=== PATIENT | female | born 1985 | race Caucasian/White ===

== ENCOUNTER → 2017-06-10 15:20 | Outpatient (CLI) | payer OTHER, SELFPAY ==
[2017-06-10 18:33] LABS: Hematocrit 35.7 % (37-47); Hemoglobin 11.9 g/dl (12.0-15.0); Mean Corp Hgb Conc 33.3 g/gl (32-36); Mean Corpuscular Hgb 31.1 pg (27.0-32.0); Mean Corpuscular Volume 93.2 fL (81-99); Mean Platelet Vol. 9.6 fl (6.2-12.0); Platelet Count 288 K/mm3 (150-450); RBC Distribution Width SD 44.7 fl (35.1-43.9); Red Blood Count 3.83 M/mm3 (4.2-5.4); White Blood Count 11.1 K/mm3 (4.4-11.0)
[2017-06-10 18:35] LABS: Scan Indicated on CBC? Y/N NO
[2017-06-10 18:54] LABS: Glucose Challenge Gest 1H 50g 107 mg/dL (70-140)
== END ==
PROVIDERS: Visit Provider Obstetrics & Gynecology
DX: Z34.82 Encounter for supervision of other normal pregnancy, second trimester (principal)
CPT/HCPCS: 36415; 82950; 85027

== ENCOUNTER → 2017-08-09 14:03 | Outpatient (CLI) | payer OTHER, SELFPAY ==
[2017-08-09 17:04] LABS: Group B Strep DNA By PCR POSITIVE (Negative); Probe Check PASS
== END ==
PROVIDERS: Visit Provider Obstetrics & Gynecology
DX: Z36.85 Encounter for antenatal screening for Streptococcus B (principal)
CPT/HCPCS: 87653

== ENCOUNTER 2017-08-19 07:30 | Outpatient (CLI) | payer OTHER, SELFPAY ==
[2017-08-19] MEDS: Lactated Ringers 1,000 ML 125 ML IV (07:45)
[2017-08-19 08:00] VITALS: BMI 32.7
[2017-08-19] MEDS: Terbutaline 1 MG/ML Vial 0.25 MG SC (08:15)
--- NOTE | 2017-08-19 08:26 | PCM.OP.BLANK ---
Operative Report Date of Procedure: 08/19/17 EXTERNAL CEPHALIC VERSION Patient counselled re R,B,alternatives of ECV. 37 + wk EGA and ALANNA 16 cm on Saturday, posterior fundal placenta in RUQ. Vtx in RUQ , breech presentation. O positive blood type NST reactive. Terbutaline 0.25 mg SC given in L upper arm. External cephalic version attempted with ultrasound guidance, Dr. Luz Bae and myself. Attempted three forward rolls and 2 back rolls. persistent breech presentation with VTX in maternal RUQ. Pt tolerated well. Repeat NST prior to dischg. Will arrange for primary C/S for breech presentation.
--- NOTE | 2017-08-19 12:39 | OB.TRI.NOTE ---
History of Present Illness Was patient seen by the physician?: Yes Reason For Visit: VERSION Date of Service: 08/19/17 Final JOSHUA: 09/06/17 Gestational age: 37 Weeks and 3 Days History of Present Illness: 32 yo female at 37 + wk with breech presentation. For external cephalic version. NST prior to and after ECV attempt. Denies UCs. No ROM. +FM. Allergies amoxicillin Allergy (Verified 08/19/17 08:20) Other erythromycin base Allergy (Verified 08/19/17 08:20) Other Penicillins Allergy (Verified 08/19/17 08:20) Hives Physical Exam General: Alert, Oriented x3, Cooperative, No apparent distress HEENT: Atraumatic Abdomen: Soft, Gravid - Breech presentation with Vtx in maternal RUQ. Posterior fundal placenta ALANNA WNL NST - FHR Rate Baby A Baseline: 130-140 avg variability. Accels to 150-160s Variability:: Moderate Accelerations:: 15 x 15 Decelerations:: None NST Reactive:: Yes, Appropriate for gestational age FHR Category:: Category I Uterine Activity:: no regular UCs noted. Impression/Plan 37 3/7 wk BREECH presentation. persistent breech after trial of ext cephalic version NST reactive post ECV Patient and fetus tolerated procedure well. Plan primary C/S at approx 39 wk EGA.
== END 2017-08-19 09:00 | disposition home or self-care (01) ==
LOC: WPOUT 07:39 → WP 07:40
PROVIDERS: Visit Provider Obstetrics & Gynecology
DX: O32.1XX0 Maternal care for breech presentation, not applicable or unspecified (principal); Z3A.37 37 weeks gestation of pregnancy
CPT/HCPCS: 96360; 59050; 59412; 76815; 99218; J7120; G0378

== ENCOUNTER 2017-09-04 05:20 | Inpatient (IN) | payer OTHER, SELFPAY ==
[2017-09-03 09:10] VITALS: BMI 32.8
[2017-09-03 10:10] LABS: Absolute Lymphocyte Count 1.35 X10^3/ul (0.83-4.51); Absolute Neutrophil Count 7.2 X10^3/uL (2.0-7.7); Basophil# 0.03 X10^3/uL; Basophil% 0.3 % (0-1); Eosinophil# 0.19 X10^3/uL; Hematocrit 36.5 % (37-47); Hemoglobin 12.4 g/dl (12.0-15.0); Lymphocyte # 1.35 X10^3/ul (4.0); Lymphocyte % 14.1 % (19-41); Mean Corpuscular Hgb 30.8 pg (27.0-32.0); Mean Corpuscular Volume 90.6 fL (81-99); Mean Platelet Vol. 10.8 fl (6.2-12.0); Monocyte# 0.78 X10^3/uL; Monocyte% 8.2 % (0-10); Neutrophil # 7.21 X10^3/uL (2.7-7.7); Neutrophil % 75.3 % (47-70); POSITIVE COUNT NO; POSITIVE DIFFERENTIAL NO; POSITIVE MORPHOLOGY NO; Platelet Count 215 K/mm3 (150-450); RBC Distribution Width CV 12.8 % (11.6-14.6); RBC Distribution Width SD 41.8 fl (35.1-43.9); Red Blood Count 4.03 M/mm3 (4.2-5.4); White Blood Count 9.6 K/mm3 (4.4-11.0)
[2017-09-03 10:16] LABS: International Normalized Ratio 0.9; Prothrombin Time (Protime)PT. 12.2 SECONDS (11.7-14.9)
[2017-09-03 10:17] LABS: Partial Thromboplast Time 25.2 Seconds (24.1-36.2)
[2017-09-04] VITALS (21 sets, daily range): BP systolic 97–168; BP diastolic 52–96; PULSE 66–99; RESP 16–20; TEMP 36.2–36.7; O2SAT 95–99; BMI 32.6
[2017-09-04] MEDS: Lactated Ringers 1,000 ML 999 ML IV (06:00)
[2017-09-04] MEDS: Lactated Ringers 1,000 ML 150 ML IV (06:58)
[2017-09-04] MEDS: Sodium Citrate/Citric Acid 30 ML UDC PO (07:00)
--- NOTE | 2017-09-04 07:05 | PCM.DCCSEC ---
Discharge Diet: No Restrictions Discharge Activity: May not drive while taking narcotic pain medications., May Shower, May Take a Tub Bath Return to work on:: 10/28/17 May resume sexual activity in: 4-6 weeks Lifting Restrictions: 20 pounds Additional Activity Instructions:: Nothing in the vagina for 4-6 weeks. You may return to work/school in 6 weeks. Change Dressing in (Days):: 4 Remove Dressing in (days):: 4 Cleanse incision/area with: Soap & Water, Keep Dressing Clean & Dry Additional Instructions: If you experience any of the following, contact your healthcare provider. Bleeding that soaks a pad every hour for 2 hours Fever 100.4 or higher Unrelieved incision or abdominal pain Swelling, redness, discharge or bleeding from your incision Problems urinating (including inability to urinate or burning while urinating). Visual changes Severe headache Flu-like symptoms Pain or redness in one of both of your breasts Pain, warmth, tenderness or swelling in your legs, especially the calf area Frequent nausea and vomiting Symptoms of depression or anxiety If you experience any of the following, call 911 or go to the nearest Emergency Room. Chest pain Problems breathing Seizure activity Partial or complete paralysis of a body part, slurred speech, weakness or drooping of the face, or a sudden inability to walk or hold your balance Allergies/Adverse Reactions: Allergies amoxicillin Allergy (Verified 09/03/17 09:08) Other erythromycin base Allergy (Verified 09/03/17 09:08) Other Penicillins Allergy (Verified 09/03/17 09:08) Hives Medications to take at Discharge Vit No.130/Iron/FA [ Tablet] 08/19/17 Docusate Sodium [Colace] 100 mg PO BID PRN PRN #30 cap 09/04/17 Naproxen [Naprosyn] 250 - 500 mg PO TID PRN #30 tab 09/04/17 Oxycodone [Oxyir] 5 - 10 mg PO Q6H PRN PRN 7 Days #28 tablet 09/04/17 The following prescriptions were given: Oxycodone [Oxyir] 5 - 10 mg PO Q6H PRN PRN 7 Days #28 tablet PRN Reason: Mod-Severe Pain (-11/20) Docusate Sodium [Colace] 100 mg PO BID PRN PRN #30 cap PRN Reason: Constipation Naproxen [Naprosyn] 250 - 500 mg PO TID PRN #30 tab PRN Reason: Mild-Mod Pain (-06/20) Follow-Up: Call to make an appointment with your doctor for an incision check in 1-2 weeks. You will also need a 6 week post- follow up appointment. Test results from this visit will be discussed in further detail at your follow-up appointment, if applicable. Please Follow Up With: Kat Martinez MD - [phone] When: Call to make an appointment for an incision check in 2 weeks. Primary Care Physician: Care Physician,No Primary [Primary Care Provider] - Proposed Discharge Date: 09/06/17
--- NOTE | 2017-09-04 07:09 | DCINST_ITS ---
Discharge Diet: No Restrictions Discharge Activity: May not drive while taking narcotic pain medications., May Shower, May Take a Tub Bath Return to work on:: 10/28/17 May resume sexual activity in: 4-6 weeks Lifting Restrictions: 20 pounds Additional Activity Instructions:: Nothing in the vagina for 4-6 weeks. You may return to work/school in 6 weeks. Change Dressing in (Days):: 4 Remove Dressing in (days):: 4 Cleanse incision/area with: Soap & Water, Keep Dressing Clean & Dry Additional Instructions: If you experience any of the following, contact your healthcare provider. * Bleeding that soaks a pad every hour for 2 hours * Fever 100.4 or higher * Unrelieved incision or abdominal pain * Swelling, redness, discharge or bleeding from your incision * Problems urinating (including inability to urinate or burning while urinating) . * Visual changes * Severe headache * Flu-like symptoms * Pain or redness in one of both of your breasts * Pain, warmth, tenderness or swelling in your legs, especially the calf area * Frequent nausea and vomiting * Symptoms of depression or anxiety If you experience any of the following, call 911 or go to the nearest Emergency Room. * Chest pain * Problems breathing * Seizure activity * Partial or complete paralysis of a body part, slurred speech, weakness or drooping of the face, or a sudden inability to walk or hold your balance Allergies/Adverse Reactions: Allergies amoxicillin Allergy (Verified 09/03/17 09:08) Other erythromycin base Allergy (Verified 09/03/17 09:08) Other Penicillins Allergy (Verified 09/03/17 09:08) Hives Medications to take at Discharge Vit No.130/Iron/FA [ Tablet] 08/19/17 Docusate Sodium [Colace] 100 mg PO BID PRN PRN #30 cap 09/04/17 Naproxen [Naprosyn] 250 - 500 mg PO TID PRN #30 tab 09/04/17 Oxycodone [Oxyir] 5 - 10 mg PO Q6H PRN PRN 7 Days #28 tablet 09/04/17 The following prescriptions were given: Oxycodone [Oxyir] 5 - 10 mg PO Q6H PRN PRN 7 Days #28 tablet PRN Reason: Mod-Severe Pain (-11/20) Docusate Sodium [Colace] 100 mg PO BID PRN PRN #30 cap PRN Reason: Constipation Naproxen [Naprosyn] 250 - 500 mg PO TID PRN #30 tab PRN Reason: Mild-Mod Pain (-06/20) Follow-Up: Call to make an appointment with your doctor for an incision check in 1-2 weeks. You will also need a 6 week post- follow up appointment. Test results from this visit will be discussed in further detail at your follow- up appointment, if applicable. Please Follow Up With: Kat Martinez MD - [phone] When: Call to make an appointment for an incision check in 2 weeks. Primary Care Physician: Care Physician,No Primary [Primary Care Provider] - Proposed Discharge Date: 09/06/17
[2017-09-04] MEDS: Oxytocin 30 units/NS 500 ml 30 UNITS/500 ML IV.SOLN 167 UNITS IV (07:38)
--- NOTE | 2017-09-04 08:21 | PCM.OP.BLANK ---
Operative Report Date of Procedure: 09/04/17 - 39 5/7 wk breech PROCEDURE: Primary C section. Preoperative diagnosis: 39 5/7 wk EGA Breech presentation Planned C section Postop diagnosis: 39 5/7 wk EGA Breech presentation Planned C section Anesthesia: Spinal, Stuart Motley CRNA Surgeon: Kat Martinez MD President Ceo & Founder: ANGELO Vega EBL 600 cc Complications: none Drains: Tom draining clear yellow / manpreet concentrated appearing urine Fluids: replacement LR Findings: At amniotomy, clear fluid was noted. Paulino viable female in breech presentation. Apgars 8/9, Baby weight: 8# 9 oz. There was a normal appearing uterus, fallopian tubes and ovaries bilaterally. PATH: None sent. Narrative account: After the risks, benefits and alternatives of the procedure were reviewed with the patient, informed consent was obtained. The patient was taken to the Operating room with an IV running, and placed in a seated position on the operating table for placement of the spinal. Once the spinal had been administered, she was placed in dorsal supine position and briefly frog-legged for Tom catheter placement, and then repositioned to dorsal supine position with leftward displacement of the uterus, and prepped and draped in the usual sterile fashion. Once the spinal was deemed adequate, a Pfannenstiel skin incision was created using the knife and the incision was carried down to the rectus fascia using the knife. The fascia was nicked in the midline. The fascial incision was extended bilaterally using curved Monk scissors. The superior aspect of the fascial incision was grasped with Afshin clamps and tented up and the underlying rectus abdominal muscles were dissected free. In a similar manner, the inferior aspect of the facial incision was grasped with Afshin clamps tented up and the underlying rectus abdominal muscles were dissected free. The rectus abdominis muscles were in the midline and the peritoneum was identified and entered by blunt dissection high in the incision. The peritoneum was stretched laterally and a bladder blade was inserted. A bladder flap was created along the lower uterine segment with Metzenbaum scissors . The uterine incision was then created using Metzenbaum scissors. The operators fingertips were used to extend the uterine incision by blunt dissection in a caudad- cephalad orientation . Clear fluid was noted at amniotomy. The breech was then delivered atraumatically through the incision. up to the level of the arms which were reduced. The Vtx was delivered through the incision by keeping the neck flexed. The OP and nares were bulb suctioned on the abdomen. The cord clamped x two and cut. And the was handed off to the nurse awaiting delivery after briefly showing her to her parents. The baby had a spontaneous, vigorous cry. The placenta was then delivered. The uterus was exteriorized and cleared of clots and debris . The uterine incision was repaired with 1 Vicryl in a running locked fashion. A second imbricating layer was then placed, using 1 Monocryl in running nonlocked fashion. An additional figure of eight stitch of 1 Vicryl was placed at the right uterine angle for hemostasis. The uterus was returned to the abdominal cavity. The gutters were cleared of clots and debris and the incision at the uterus was inspected. Excellent hemostasis was noted. The peritoneal edges rectus abdominis muscles were reapproximated in the midline with vertical mattress stitches of 1 Vicryl. Bovie cautery was used as needed along peritoneal edges for hemostasis. Excellent hemostasis was noted at the subfascial space. The fascia was closed with Stratofix. The Subcutaneous fatty tissue was Bovie cauterized as needed for hemostasis. This layer was then reapproximated with a single layer of running 3-0 Vicryl to eliminate space. The skin edges were closed in a Subcuticular stitch of 4-0 Monocryl. The incision was cleansed. Cavilon, Steristrips, and Mepilex dressing were applied to the skin. The patient was then transferred to the recovery room bed in stable condition after tolerating the procedure well. Sponge, lap, needle and instrument counts correct times two. Medications given preop and intraoperatively included: Gentamicin and clindamycin given prior to incision. The patient also received Pitocin given IV after cord clamp, and Toradol 30 mg IV times one. For a complete listing of medications given preop and intraoperatively, please see the anesthesia record.
[2017-09-04] MEDS: 0.9% Saline Lock 10 ML Syringe IV (12:55)
[2017-09-04] MEDS: Ketorolac 30 MG/ML Syringe IV ×2 (12:55→17:32)
[2017-09-04] MEDS: Lactated Ringers 1,000 ML 100 ML IV ×2 (13:31→22:31)
--- NOTE | 2017-09-04 16:19 | CHAPLAIN ---
Type of Pastoral Visit _x__ Initial Visit ___ Follow-up Visit ___ On-call Visit ___ General Patient Visit ___ Spiritual Assessment ___ Family Conference ___ Bereavement ___ Rapid Response ___ Code Blue ___ Other (describe below) Pastoral Care Referral From _x__ Patient ___ Family ___ Nurse ___ Physician ___ Crabbing Machine Operator ___ Prism Measurer ___ Other (describe below) Sacrament/Intervention _x__ Active listening ___ Anointing ___ Holiness ___ Bereavement ___ Communion ___ Colleen exploration ___ ___ Life review _x__ Prayer ___ Reconciliation ___ Sacrament of Sick ___ Supportive presence ___ Wedding ___ Other (describe below) Pastoral Comments patient and family are known to this aemt and had requested prayer for a safe delivery/
[2017-09-04] MEDS: Prenatal Vits Tablet 1 TABLET PO (17:32)
[2017-09-04] MEDS: Acetaminophen 500 MG Tablet 1000 MG PO (21:32)
[2017-09-05] VITALS (7 sets, daily range): BP systolic 135–141; BP diastolic 84–87; PULSE 75–108; RESP 14–20; TEMP 36–37.2; O2SAT 95–98
[2017-09-05] MEDS: Ketorolac 30 MG/ML Syringe IV ×5 (00:23→23:53)
[2017-09-05 06:58] LABS: Hematocrit 33.1 % (37-47); Hemoglobin 11.3 g/dl (12.0-15.0); Mean Corp Hgb Conc 34.1 g/gl (32-36); Mean Corpuscular Hgb 31.3 pg (27.0-32.0); Mean Corpuscular Volume 91.7 fL (81-99); Mean Platelet Vol. 10.3 fl (6.2-12.0); Platelet Count 192 K/mm3 (150-450); RBC Distribution Width CV 12.6 % (11.6-14.6); Red Blood Count 3.61 M/mm3 (4.2-5.4); White Blood Count 10.6 K/mm3 (4.4-11.0)
[2017-09-05 07:08] LABS: Scan Indicated on CBC? Y/N NO
[2017-09-05] MEDS: Prenatal Vits Tablet 1 TABLET PO (07:54)
[2017-09-05] MEDS: Senna/Docusate Sodium 1 Tablet PO (07:54)
[2017-09-05] MEDS: oxyCODONE 5 MG Tablet PO ×2 (07:57→15:30)
--- NOTE | 2017-09-05 08:28 | PCM.PN.OB ---
Subjective: POD#1 Primary C/S breech Doing well. pain control adequate. Breast feeding. No concerns related. Plans to get up at approx 9 am with RN assist Objective: Holding sleeping baby in bed - Physical Exam General: Alert, Oriented x3, Cooperative, No apparent distress HEENT: Atraumatic Neck: Supple Abdomen: Soft - Fundus firm NT approx 3 cm inf to umbliicus Skin: Incision - CDI. mepilex dressing intact with 1 cm spot of old blood at midportion. Neurological: Cranial nerves II-XII grossly intact Psych/Mental Status: Normal Affect Vital Signs Temp Pulse Resp BP Pulse Ox 97.8 F 83 14 136/87 H 97 09/05/17 08:11 09/05/17 08:11 09/05/17 08:11 09/05/17 08:11 09/05/17 08:11 Oxygen Delivery Method Room Air Weight: 94.5 kg Body Mass Index (BMI) 32.6 Intake and Output for Last 24 Hours 09/03/17 09/04/17 09/05/17 23:59 23:59 23:59 Intake Total 2395 / 2395 2647 / 2647 Output Total 1400 / 1400 4400 / 4400 Balance 995 / 995 -1753 / -1753 Laboratory Tests Past 24 Hrs 09/05/17 06:40 WBC 10.6 RBC 3.61 L Hgb 11.3 L Hct 33.1 L MCV 91.7 MCH 31.3 MCHC 34.1 RDW 12.6 RDW Differential 41.0 Plt Count 192 MPV 10.3 Medical Necessity - Tobacco Use Smoking Status: Never smoker Assessment/Plan POD#1 Primary C/S for breech presentation Stable postop. Hgb stable. AVSS Benign exam. Inc diet and activity as tolerated. voiding trial. PO meds to start today. Continue routine care.
[2017-09-05] MEDS: 0.9% Saline Lock 10 ML Syringe IV ×3 (11:16→23:53)
[2017-09-06] MEDS: oxyCODONE 5 MG Tablet PO ×3 (02:31→20:08)
[2017-09-06 02:32] VITALS: PULSE 98; RESP 18; TEMP 37.2; O2SAT 94
[2017-09-06] MEDS: Ketorolac 30 MG/ML Syringe IV (05:56)
[2017-09-06] MEDS: 0.9% Saline Lock 10 ML Syringe IV (05:58)
[2017-09-06 08:00] VITALS: BP 133/82; PULSE 87; RESP 16; TEMP 36.7; O2SAT 96
[2017-09-06] MEDS: Senna/Docusate Sodium 1 Tablet PO ×2 (08:22→15:28)
--- NOTE | 2017-09-06 08:24 | PCM.PN.OB ---
Subjective: POD#2 primary C/S breech, 39+ wks. Doing well. Nursing baby. No concerns but mentions she passed a clot last night. Pain control adequate with po meds. Uncertain re dischg home today or tomorrow. - Physical Exam General: Alert, Oriented x3, Cooperative, No apparent distress HEENT: Atraumatic Neck: Supple Abdomen: Soft - Fundus firm NT approx 2 cm inferior to umbilicus Skin: Incision - Mepilex CDI. No erythema. Neurological: Cranial nerves II-XII grossly intact Psych/Mental Status: Normal Affect Vital Signs Temp Pulse Resp BP Pulse Ox 98.0 F 87 16 133/82 H 96 09/06/17 08:00 09/06/17 08:00 09/06/17 08:00 09/06/17 08:00 09/06/17 08:00 Oxygen Delivery Method Room Air Weight: 94.5 kg Body Mass Index (BMI) 32.6 Intake and Output for Last 24 Hours 09/04/17 09/05/17 09/06/17 23:59 23:59 23:59 Intake Total 2395 / 2395 2647 / 2647 Output Total 1400 / 1400 5050 / 5050 Balance 995 / 995 -2403 / -2403 Medical Necessity - Tobacco Use Smoking Status: Never smoker Assessment/Plan POD#2 Primary C/S for breech presentation Stable postop. AVSS Benign exam. Continue routine care.
--- NOTE | 2017-09-06 08:27 | PCM.DC.SUM ---
Discharge Date and Diagnosis Date of Admission: 09/04/17 - Breech 39 5/7 wk , planned C/S Date of Discharge: 09/06/17 - S/p primary C/S for breech Hospital Course and Treatment Operations: - - Primary C section for breech presentation. Summary of Care Provided: The patient is a 32 year old female presented for primary C/S due to breech presentation. Admitted on 09/04/17 for primary C/S. C/S performed that day, uncomplicated. Delivered a leal viable female AP 8/9 8# 9 oz. Postoperative exam benign. AVSS Hgb stable. Nursing well. Discharged home RTO in 2 wk for postop incision check. Discharge Diet: No Restrictions Discharge Activity: May not drive while taking narcotic pain medications., May Shower, May Take a Tub Bath Return to work on:: 10/28/17 May resume sexual activity in: 4-6 weeks Additional Activity Instructions:: Nothing in the vagina for 4-6 weeks. You may return to work/school in 6 weeks. Change Dressing in (Days):: 4 Remove Dressing in (days):: 4 Cleanse incision/area with: Soap & Water, Keep Dressing Clean & Dry Home Medications: Medications to take at Discharge Vit No.130/Iron/FA [ Tablet] 08/19/17 Docusate Sodium [Colace] 100 mg PO BID PRN PRN #30 cap 09/04/17 Naproxen [Naprosyn] 250 - 500 mg PO TID PRN #30 tab 09/04/17 Oxycodone [Oxyir] 5 - 10 mg PO Q6H PRN PRN 7 Days #28 tablet 09/04/17 Following Prescrptions Were Given to Patient: Oxycodone [Oxyir] 5 - 10 mg PO Q6H PRN PRN 7 Days #28 tablet PRN Reason: Mod-Severe Pain (4-10/10) Docusate Sodium [Colace] 100 mg PO BID PRN PRN #30 cap PRN Reason: Constipation Naproxen [Naprosyn] 250 - 500 mg PO TID PRN #30 tab PRN Reason: Mild-Mod Pain (1-5/10) Primary Care Physician: Care Physician,No Primary [Primary Care Provider] - Please Follow Up With: Kat Martinez MD - [phone] When: Call to make an appointment for an incision check in 2 weeks. Medical Necessity - Tobacco Use Smoking Status: Never smoker Meaningful Use Info Meaningful Use Diagnoses (Choose all that apply): None applicable
[2017-09-06] MEDS: Prenatal Vits Tablet 1 TABLET PO (11:37)
[2017-09-06] MEDS: Acetaminophen 500 MG Tablet 1000 MG PO (11:37)
[2017-09-06 11:48] VITALS: BP 135/88; PULSE 108; RESP 16; TEMP 36.3; O2SAT 95
[2017-09-06] MEDS: Naproxen 250 MG Tablet PO (15:29)
[2017-09-06 20:00] VITALS: BP 154/79; PULSE 82; RESP 18; TEMP 36.4; O2SAT 97
[2017-09-06 21:58] VITALS: BP 134/80
[2017-09-07] MEDS: Acetaminophen 500 MG Tablet 1000 MG PO ×2 (00:20→08:06)
[2017-09-07 04:10] VITALS: BP 127/83; PULSE 84; RESP 16; TEMP 36.6; O2SAT 95
[2017-09-07] MEDS: Naproxen 250 MG Tablet PO (06:28)
[2017-09-07 07:51] VITALS: BP 134/88; PULSE 88; RESP 16; TEMP 36.8
[2017-09-07] MEDS: Senna/Docusate Sodium 1 Tablet PO (08:06)
[2017-09-07] MEDS: oxyCODONE 5 MG Tablet PO (08:07)
--- NOTE | 2017-09-07 08:08 | PCM.PN.OB ---
Subjective: Doing well. No specific complaints. Bleeding light. Pain reasonably controlled. Objective: Afeb VSS - Physical Exam General: Alert, Oriented x3, Cooperative, No apparent distress Lungs: Clear to auscultation, Normal air movement Cardiovascular: Regular rate, Regular Rhythm Abdomen: Soft, Non Tender, Non-Distended, - - Incision dressing dry, no erythema. Fundus nontender Extremities: No edema Skin: No rashes Neurological: Neuro grossly intact Psych/Mental Status: Normal Affect Comment: Lochia light Vital Signs Temp Pulse Resp BP Pulse Ox 98.2 F 88 16 134/88 H 95 09/07/17 07:51 09/07/17 07:51 09/07/17 07:51 09/07/17 07:51 09/07/17 04:10 Oxygen Delivery Method Room Air Weight: 208 lb 5.389 oz Body Mass Index (BMI) 32.6 Intake and Output for Last 24 Hours //09/06/09/07/17 23:59 23:59 23:59 Intake Total 2647 / 2647 Output Total 5050 / 5050 Balance -2403 / -2403 Medical Necessity - Tobacco Use Smoking Status: Never smoker Assessment/Plan Doing well on POD#3. Cleared for discharge home today. Home going instructions and warnings given.
--- NOTE | 2017-09-07 08:23 | NURSING ---
0800 dr lemus into see pt; dc instructions given pt verbalizes understanding; made aware of morning bp 134/88 ok for dc to home; pt denies need for any further infant or maternal care teaching;
--- NOTE | 2017-09-13 15:57 | NURSING ---
attempted follow up call , mailbox full no message left
== END 2017-09-07 09:50 | disposition home or self-care (01) | DRG 766 ==
PROVIDERS: Admitting Provider Obstetrics & Gynecology; Visit Provider Obstetrics & Gynecology
PROC: 10D00Z1 Extraction of Products of Conception, Low, Open Approach (ICD-10-PCS; CPT 59514; principal; 2017-09-04 07:15)
DX: O32.1XX0 Maternal care for breech presentation, not applicable or unspecified (principal); Z37.0 Single live birth; Z3A.39 39 weeks gestation of pregnancy
CPT/HCPCS: 85025; 85027; 85610; 85730; 86850; 86900; 99218; J7120; A4216; G0378; J2405

== ENCOUNTER 2017-09-12 13:30 | Outpatient (CLI) | payer OTHER, SELFPAY | END 2017-09-12 14:30 | disposition home or self-care (01) | LOC: WPOUT 13:31 → WP 13:33 | PROVIDERS: Visit Provider Obstetrics & Gynecology | DX: Z39.1 Encounter for care and examination of lactating mother (principal) | CPT/HCPCS: 96152 ==

== ENCOUNTER → 2018-12-04 18:30 | Outpatient (CLI) | payer OTHER, SELFPAY ==
[2017-09-04 05:30] VITALS: BMI 32.6
[2018-12-04 21:22] LABS: Chlamydia Trachomatis by PCR Negative (Negative); Neisserai gonorrhoeae by PCR Negative (Negative); Probe Check PASS; Sample Adequacy Control PASS; Specimen Processing Control PASS
== END ==
PROVIDERS: Referring Provider Obstetrics & Gynecology; Visit Provider Obstetrics & Gynecology
DX: Z11.3 Encounter for screening for infections with a predominantly sexual mode of transmission (principal)
CPT/HCPCS: 87491; 87591

== ENCOUNTER → 2018-12-09 16:30 | Outpatient (CLI) | payer OTHER, SELFPAY ==
[2017-09-04 05:30] VITALS: BMI 32.6
[2018-12-09 17:36] LABS: Absolute Lymphocyte Count 2.18 X10^3/uL (0.83-4.51); Absolute Neutrophil Count 8.8 X10^3/uL (2.0-7.7); Basophil# 0.07 X10^3/uL; Basophil% 0.6 % (0-1); Eosinophil# 0.26 X10^3/uL; Eosinophils% 2.1 % (0-5); Hematocrit 40.1 % (37-47); Hemoglobin 13.3 g/dL (12.0-15.0); Lymphocyte # 2.18 X10^3/ul (4.0); Mean Corp Hgb Conc 33.2 g/dL (32-36); Mean Corpuscular Hgb 29.8 pg (27.0-32.0); Mean Corpuscular Volume 89.7 fL (81-99); Mean Platelet Vol. 9.7 fl (6.2-12.0); Monocyte# 0.76 X10^3/uL; Monocyte% 6.3 % (0-10); NRBC Flagged by Analyzer 0 % (0-5); Neutrophil # 8.78 X10^3/uL (2.7-7.7); Neutrophil % 72.5 % (47-70); Platelet Count 295 K/mm3 (150-450); RBC Distribution Width CV 12.7 % (11.6-14.6); RBC Distribution Width SD 42.1 fl (35.1-43.9); Red Blood Count 4.47 M/mm3 (4.2-5.4); White Blood Count 12.1 K/mm3 (4.4-11.0)
[2018-12-09 17:37] LABS: Color, Urine Yellow (Yellow); Glucose, Dipstick Normal (Normal); Ketone-Dipstick Negative (Negative); Leukocyte Esterase-Dipstick 25 /ul (Negative); Nitrite-Dipstick Negative (Negative); Occult Blood-Urine Negative /ul (Negative); Protein-Dipstick Negative (Negative); Specific Gravity, Urine 1.005 (1.002-1.030); Urine Bilirubin Dipstick Negative (Negative); Urine Clarity Clear (Clear); Urine Urobilinogen Normal (Normal)
[2018-12-09 18:12] LABS: Thyroid Stim Hormone (TSH) 1.63 uIU/mL (0.358-3.74)
[2018-12-10 10:40] LABS: HIV - WCH Non-Reactive (Nonreactive); Hepatitis B Surface Antigen Non-Reactive (Nonreactive); Hepatitis C Antibody Non-Reactive (Nonreactive); Rubella IgG 80.3 IU/mL
[2018-12-11 03:07] LABS: Prenatal RPR NONREACTIVE (NONREACTIVE)
== END ==
PROVIDERS: Visit Provider Obstetrics & Gynecology
DX: Z34.81 Encounter for supervision of other normal pregnancy, first trimester (principal)
CPT/HCPCS: 36415; 81002; 84443; 85025; 86703; 86762; 86803; 87340

== ENCOUNTER → 2019-04-29 09:17 | Outpatient (CLI) | payer OTHER, SELFPAY ==
[2019-04-29 11:09] LABS: Hematocrit 33.5 % (37-47); Hemoglobin 11.3 g/dL (12.0-15.0); Mean Corp Hgb Conc 33.7 g/dL (32-36); Mean Corpuscular Hgb 31.3 pg (27.0-32.0); Mean Corpuscular Volume 92.8 fL (81-99); Mean Platelet Vol. 9.5 fl (6.2-12.0); Platelet Count 278 K/mm3 (150-450); RBC Distribution Width CV 13.1 % (11.6-14.6); RBC Distribution Width SD 44.5 fl (35.1-43.9); Red Blood Count 3.61 M/mm3 (4.2-5.4); White Blood Count 9.5 K/mm3 (4.4-11.0)
[2019-04-29 11:12] LABS: Glucose Challenge Gest 1H 50g 96 mg/dL (70-140)
== END ==
PROVIDERS: Visit Provider Obstetrics & Gynecology
DX: Z34.83 Encounter for supervision of other normal pregnancy, third trimester (principal)
CPT/HCPCS: 36415; 82950; 85027

== ENCOUNTER → 2019-06-23 16:05 | Outpatient (CLI) | payer OTHER, SELFPAY ==
[2017-09-04 05:30] VITALS: BMI 32.6
== END ==
PROVIDERS: Visit Provider Obstetrics & Gynecology
DX: Z36.85 Encounter for antenatal screening for Streptococcus B (principal)
CPT/HCPCS: 87077; 87081; 87186

== ENCOUNTER 2019-07-17 08:55 | Inpatient (IN) | payer OTHER, SELFPAY ==
[2017-09-04 05:30] VITALS: BMI 32.6
[2019-07-17] VITALS (33 sets, daily range): BP systolic 105–144; BP diastolic 55–95; PULSE 80–113; TEMP 36–37.1; O2SAT 93–100; BMI 31.9
[2019-07-17 08:54] LABS: ROM Internal Control Test YES-OK TO RESULT pt. (Internal QC)
[2019-07-17 08:55] LABS: ROM Patient Test POSITIVE (Negative)
[2019-07-17] MEDS: Lactated Ringers 1,000 ML 50 ML IV (09:40)
[2019-07-17 10:14] LABS: Absolute Lymphocyte Count 1.42 X10^3/uL (0.83-4.51); Absolute Neutrophil Count 8.2 X10^3/uL (2.0-7.7); Basophil# 0.05 X10^3/uL; Basophil% 0.5 % (0-1); Eosinophil# 0.17 X10^3/uL; Eosinophils% 1.6 % (0-5); Hematocrit 34.7 % (37-47); Lymphocyte # 1.42 X10^3/ul (4.0); Lymphocyte % 13.4 % (19-41); Mean Corp Hgb Conc 31.7 g/dL (32-36); Mean Corpuscular Volume 91.6 fL (81-99); Mean Platelet Vol. 10.1 fl (6.2-12.0); Monocyte# 0.63 X10^3/uL; NRBC Flagged by Analyzer 0 % (0-5); Neutrophil # 8.23 X10^3/uL (2.7-7.7); Neutrophil % 77.7 % (47-70); Platelet Count 263 K/mm3 (150-450); RBC Distribution Width CV 13.5 % (11.6-14.6); RBC Distribution Width SD 45.1 fl (35.1-43.9); Red Blood Count 3.79 M/mm3 (4.2-5.4); White Blood Count 10.6 K/mm3 (4.4-11.0)
[2019-07-17 10:37] LABS: Creatinine, Serum 0.61 mg/dL (0.55-1.02); EST Glomerular Filtration Rate 121 mL/min (>60); Est Glom Filt Rate - Afr Amer 146 mL/min (>60); Estimated Creatinine Clearance 128.75 ml/min
--- NOTE | 2019-07-17 12:27 | PCM.HP.OB ---
- Problem List (1) 39 weeks gestation of Status: Acute (2) Encounter for trial of labor Status: Acute History Date of Admission: 07/17/19 - Breech 39 5/7 wk , planned C/S Final JOSHUA: 07/21/19 Final JOSHUA Source: US <20 weeks Gestational age: 39 Weeks and 3 Days History of this : This is a 34 year-old, G [2], P [1], at 39 3/7 weeks gestational age admitted with SROM, hx prior section. Desires TOLAC. Medical History: Medical History (Last Updated 07/17/19 @ 12:[address] Mariella Bae MD) Family history of breast cancer in first degree relative Z80.3 Surgical History: Surgical History (Last Updated 07/17/19 @ 12:[address] Mariella Bae MD) Previous section Z98.891 Allergies amoxicillin Allergy (Verified 09/03/17 09:08) Other erythromycin base Allergy (Verified 09/03/17 09:08) Other Penicillins Allergy (Verified 09/03/17 09:08) Hives Home Medications: Home Medications Vits [Prenatabs FA] 1 tab PO DAILY 07/17/19 Smoking Status: Never smoker Alcohol: None Number of Fetus(es): 1 NST - FHR Rate Baby A Baseline: 140 Variability:: Moderate Accelerations:: 15 x 15 Decelerations:: Variable NST Reactive:: Yes FHR Category:: Category II Uterine Activity:: 2/10 min History Past Pregnancies: Past Pregnancies Delivery Date Name GA/ Weeks Outcome Route Wt Infant Sex Labor Length Anesthesia Delivery Location Provider FOB 08/2017 [place] 39 Breech LTCS 8lb9oz F n/a Spinal [facility] Juan Orozco Labs: Mom's Problem List Problem Status Onset Code 39 weeks gestation of Acute Z3A.39 Encounter for trial of labor Acute Mom's Labs & Results 07/17/19 07/17/19 07/17/19 08:44 09:40 09:40 WBC 10.6 RBC 3.79 L Hgb 11.0 L Hct 34.7 L MCV 91.6 MCH 29.0 MCHC 31.7 L RDW Std Deviation 45.1 H RDW Coeff of Lisbeth 13.5 Plt Count 263 MPV 10.1 Immature Gran % (Auto) 0.800 Neut % (Auto) 77.7 H Lymph % (Auto) 13.[address] [place] % (Auto) 6.0 Eos % (Auto) 1.6 Baso % (Auto) 0.5 Absolute Neuts (auto) 8.2 H Absolute Lymphs (auto) 1.42 Nucleated RBC % 0 Creatinine Estim Creat Clear Calc Est GFR (MDRD) Af Amer Est GFR (MDRD) Non-Af Vag Amniotic Fld Detect POSITIVE H Blood Type O POSITIVE Antibody Screen NEGATIVE 07/17/19 09:40 WBC RBC Hgb Hct MCV MCH MCHC RDW Std Deviation RDW Coeff of Lisbeth Plt Count MPV Immature Gran % (Auto) Neut % (Auto) Lymph % (Auto) [place] % (Auto) Eos % (Auto) Baso % (Auto) Absolute Neuts (auto) Absolute Lymphs (auto) Nucleated RBC % Creatinine 0.61 Estim Creat Clear Calc 128.75 Est GFR (MDRD) Af Amer 146 Est GFR (MDRD) Non-Af 121 Vag Amniotic Fld Detect Blood Type Antibody Screen Course Did the patient receive Yes care? Labs Blood Type: O RH: POSITIVE RPR/VDRL/Syphilis Nonreactive Rubella status Immune HbSAg Negative Date Done: 12/09/18 Chlamydia Negative Gonorrhea Negative HIV/AIDS Non-Reactive Group B Strep: Positive Current Obstetrical History Gestational Diabetes No Incompetent Cervix No Infertility No IUGR No Macrosomia No Hypertension/Pre-eclampsia No Placenta Previa/Abruption No PTL/PROM No Uterine anomaly No Oligohydramnios No Polyhydramnios No Multiple gestation No Past Medical History Asthma No Diabetes No Hypertension No Heart disease No Mitral valve prolapse No Neurologic/Seizure disorder/ No Migraines Kidney disease No Liver disease No Varicosities No Clotting disorders/Hx of DVT No Thyroid Dysfunction No Other medical diseases No Psychiatric disorders No Major trauma No Abnormal PAP smear No Sleep apnea No Mammogram in the last 2 years Yes: hx. of breast cancer in family, no significant findings on with mammogram Social History Marital Status: Alleged father Atif Ren Hx Smoking No Smoking Status Never smoker Expected Delivery Method: Number of Visits: 12 Physical Exam Vitals: Vital Signs Temp Pulse BP Pulse Ox 98.7 F 93 105/55 L 95 07/17/19 10:51 07/17/19 11:49 07/17/19 11:49 06/05/20 11:49 General: Alert, Oriented x3, Cooperative, No apparent distress HEENT: Atraumatic, Normocephalic Cardiovascular: Regular rate Lungs: Normal air movement Abdomen: Soft, Non Tender, Non-Distended, Gravid Extremities:: No edema Neurological: Neuro grossly intact INTELLIGENCE MANAGER: Normal external genitalia Estimated gestational size: Appropriate for gestational size Presentation: Cephalic Cervix Dilation (cm): 3 Station: -2 Effacement (%): 60 Assessment/Plan All Active Problems (Last Updated 07/17/19 @ 12:[address] Mariella Bae MD) 39 weeks gestation of (Acute) Encounter for trial of labor (Acute) This is a 34 year-old, G [2], P [1], at 39 3/7 weeks gestational age, TOLAC with SROM -GBS positive, high risk PCN allergy, Vancomycin ppx -No significant cervical change, will start pitocin. Reviewed with patient risks, benefits of pitocin including potential increase risk for uterine rupture associated with augmentation. Pt desires to proceed with MEMO. -Maternal and statuses reassuring -COVI19 testing Procedure Criteria Procedure Type: Essential Procedure Essential: Yes Criteria Statement: On 04/28/2019 the [place] Department of Health ([facility]) Public Order signed by [facility] Director Nuzhat Batista M.D., regarding the Management of Non-Essential Surgeries and Procedures for the purpose of preserving Personal Protective Equipment (PPE) and critical hospital capacity and resources within [place] went into effect as of 04/29/2019 at 5:00PM. According to the [facility] Public Order: This action will remain in full force and effect until the State of Emergency declared by the Governor no longer exists or the Director of the [facility] rescinds or modifies this Order. This [facility] order stated all non-essential or elective surgeries and procedures that utilize PPE should be delayed unless there is undue risk to the current or future health of a patient. After reviewing the aforementioned [facility] Public Order and the patient's clinical case, I have determined that the scheduled procedure meets the criteria to go forward. Risk to Patient if Procedure Delayed: Threat to patient's life if surgery or procedure is delayed
[2019-07-17] MEDS: Oxytocin 30 units/NS 500 ml 30 UNITS/500 ML IV.SOLN IV (12:40)
--- NOTE | 2019-07-17 13:19 | PCM.RX.CS ---
Consult Pharmacy has been consulted to manage selected antiobiotic: Vancomycin Type of Consult: New start Suspected Infection: Other Prior Doses of Antibiotics Received/Current Regimen: 1750mg iv x 1 6.5.20 @1015 Labs: Creatinine 0.61 mg/dL (0.55-1.02) 07/17/19 09:40 Est GFR (MDRD) Af Amer 146 mL/min (>60) 07/17/19 09:40 Est GFR (MDRD) Non-Af 121 mL/min (>60) 07/17/19 09:40 Weight used for dosin.5 kg Estimated Creatinine Clearance: ~129ml/min Goal Trough: 10-15 mcg/mL Pharmacy Plan for Drug Dosing: Will begin 1750mg (20mg/kg) iv q8h. Trough ordered 6.6.20 @0930. Pharmacy Service will continue to monitor and adjust dosing as required. Follow-Up Labs: Trough Vancomycin - 6.6.20 @0930 before 1000 dose
[2019-07-17 15:31] LABS: Probe Check PASS; Specimen Processing Control PASS
--- NOTE | 2019-07-17 17:30 | PCM.PN.BLA ---
Progress Note LABOR PROGRESS NOTE Whitney is comfortable with epidural. AVSS GEN - NAD, AAO x 3 FHR 135, moderate variability, no acceleration, + variable deceleration SVE 3/60/-2 per last RN exam TOCO 4/10 min US performed - fetus OP A/P: 34yo @ 39 3/7wga with Category II FHR -Maternal and statuses overall reassuring -Remains in latent labor, US confirms OP -Will continue pitocin as tolerated by mother and fetus STROKE Vital Signs/Narrative: Vital Signs Temp Pulse BP Pulse Ox 07/17/19 23:31 96.8 F L 99 127/61 H 96 07/17/19 22:00 98.5 F 100 110/77 95 07/17/19 20:59 98.5 F 105 H 117/58 L 96 07/17/19 20:58 105 H 117/58 L 07/17/19 19:58 86 127/58 H
[2019-07-17] MEDS: Lactated Ringers 500 ML 999 ML IV (17:51)
[2019-07-17] MEDS: fentaNYL-bupivacaine (epidural) 100 ML BAG EPIDURAL ×2 (18:55→22:07)
[2019-07-17] MEDS: Mag Hydrox/Al Hydrox/Simeth 30 ML UDC PO (19:30)
[2019-07-17] MEDS: Ondansetron 4 MG/2 ML Vial IV ×2 (19:31→23:49)
[2019-07-17] MEDS: Lactated Ringers 1,000 ML 200 ML IV (21:45)
[2019-07-17] MEDS: proCHLORPERazine 10 MG/2 ML Vial IV (21:55)
--- NOTE | 2019-07-17 22:25 | PCM.PN.BLA ---
Progress Note LABOR PROGRESS NOTE Whitney reports increasing pain in midline lower abdomen with contractions 08/20. AVSS GEN - NAD, AAO x 3 FHR 140, moderate variability, + accelerations, no decelerations TOCO 4/10 min SVE 6/95/-2 per RN W Tino exam US - lower uterine segment without defect, fetus ROP A/P: 34yo @ 39 3/7wga, TOLAC, Cat I FHR -Notify anesthesiology for pain management -Continue pitocin -Maternal and statuses overall reassuring STROKE Vital Signs/Narrative: Vital Signs Temp Pulse BP Pulse Ox 07/17/19 23:31 96.8 F L 99 127/61 H 96 07/17/19 22:00 98.5 F 100 110/77 95 07/17/19 20:59 98.5 F 105 H 117/58 L 96 07/17/19 20:58 105 H 117/58 L 07/17/19 19:58 86 127/58 H
--- NOTE | 2019-07-17 23:31 | PCM.PN.BLA ---
Progress Note LABOR PROGRESS NOTE Whitney is more comfortable after epidural rebolus. AVSS GEN - NAD, AAO x 3 FHR 130, moderate variability, no accelerations, no decelerations TOCO 4/10 min SVE deferred A/P: 34yo @ 39 3/7wga, TOLAC, Cat I FHR -Maternal and statuses reassuring -Continue pitocin as tolerated by mother and fetus -Continue Vancomycin for GBS ppx STROKE Vital Signs/Narrative: Vital Signs Temp Pulse BP Pulse Ox 07/17/19 22:00 98.5 F 100 110/77 95 07/17/19 20:59 98.5 F 105 H 117/58 L 96 07/17/19 20:58 105 H 117/58 L 07/17/19 19:58 86 127/58 H
[2019-07-18] VITALS (18 sets, daily range): BP systolic 117–143; BP diastolic 55–89; PULSE 78–119; RESP 12–18; TEMP 36.3–36.7; O2SAT 96–97
[2019-07-18] MEDS: Oxytocin 30 units/NS 500 ml 30 UNITS/500 ML IV.SOLN 999 UNITS IV (02:20)
--- NOTE | 2019-07-18 02:43 | PCM.OPRPT ---
Problem List (1) 39 weeks gestation of Status: Acute (2) Encounter for trial of labor Status: Acute Report of Operation Date of Procedure: 07/18/19 Pre-Operative Diagnosis: 1. 39 4/7 weeks gestation. 2. TOLAC Post-Operative Diagnosis: 1. 39 4/7 weeks gestation. 2. TOLAC Vaginal Delivery Maternal Presentation: Spontaneous Rupture of Membranes Method of Induction: Pitocin Amniotic Membrane Rupture Type: Spontaneous at home Rupture of Membrane time: 07/17/19 0630h Amniotic Fluid Description: Clear Final JOSHUA: 07/21/19 Final JOSHUA Source: US <20 weeks Gestational age: 39 Weeks and 4 Days [place] doctor who attended delivery (if requested by OB): Mildred Payne Date of Procedure: 07/18/19 Surgery/ Procedure Performed: Spontaneous Vaginal Delivery, - - Vaginal after section Anesthesiologist: Ca Lambert Type of Anesthesia: Epidural Description of Procedure: Patient was FD/+2 on my arrival. She pushed to deliver a female infant over and intact perineum. The infant mouth and nares were bulb suctioned and the placed on the maternal abdomen and further attended by nursery personnel. The cord was doubly clamped and cut at approximately 2 minutes of life. The placenta delivered spontaneously and appeared intact on inspection. Bilateral labia minoral lacerations were present. 1% lidocaine was administered locally due to suboptimal epidural pain relief. The right was reapproximated with 3-0 Vicryl Rapide. The left was hemostatic thus no repair required. There was excellent hemostasis. Fundus was firm at 1 FW below the umbilicus Sponge and needle counts correct x 2. Presentation: Vertex Placental Delivery Description: Spontaneous Placenta Disposition: [facility] Cord Vessel Description: 3 Vessels Nuchal Cord Compression: Without compression Cord Entanglement: Around neck x 2, loose Drain: Tom to straight drain Estimated Blood Loss: 350 Infant A gender: Female (1 minute): 7 (5 minute): 8 Episiotomy Description: None Medications given after delivery: IV Pitocin Complications: None
[2019-07-18] MEDS: 0.9% Saline Lock 10 ML Syringe IV (04:33)
[2019-07-18] MEDS: Ibuprofen 600 MG Tablet PO ×2 (07:28→20:19)
[2019-07-18] MEDS: Prenatal Vits Tablet 1 TABLET PO (11:14)
--- NOTE | 2019-07-18 19:14 | PCM.PN.BLA ---
Progress Note s/p early this am doing well. AVSS. Feels well. She is sore, but pain is manageable. No difficulty walking. Denies heavy lochia. Infant latching and nursing well, but has a tongue tie with breast pain occurring with latch. Whitney's first daughter also had this. Whitney has some numbness to touch in the left thigh, otherwise, no complaints. 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 Anticipate symptom resolution. STROKE Vital Signs/Narrative: Vital Signs Temp Pulse Resp BP 07/18/19 15:48 97.9 F 104 H 12 139/58 H
[2019-07-19] MEDS: Acetaminophen 500 MG Tablet 1000 MG PO (00:25)
[2019-07-19 00:28] VITALS: BP 112/62; PULSE 87; RESP 18; TEMP 36.4
[2019-07-19 04:18] VITALS: BP 117/63; PULSE 91; RESP 16; TEMP 36.7
[2019-07-19] MEDS: Senna/Docusate Sodium 1 Tablet PO (07:47)
[2019-07-19] MEDS: Ibuprofen 600 MG Tablet PO (07:48)
[2019-07-19 07:57] VITALS: BP 110/68; PULSE 86; RESP 18; TEMP 36.2
--- NOTE | 2019-07-19 09:25 | DCINST_ITS ---
Discharge Diet: No Restrictions Discharge Activity: Return to Normal Activity, May not drive while taking narcotic pain medications., May Shower, May Take a Tub Bath Call your doctor if you observe: Fever of 101 or Higher, Inability to urinate, Inability to have a bowel movement, Using more than one pad per hour, Shortness of breath, Chest pain, Calf discomfort, Uncontrolled pain Additional Instructions: If you experience any of the following, contact your healthcare provider. * Bleeding that soaks a pad every hour for 2 hours * Fever 100.4 or higher * Unrelieved incision or abdominal pain * Swelling, redness, discharge or bleeding from your incision or episiotomy site * Your incision begins to separate * Problems urinating (including inability to urinate or burning while urinating). * Visual changes * Severe headache * Flu-like symptoms * Pain or redness in one of both of your breasts * Pain, warmth, tenderness or swelling in your legs, especially the calf area * Frequent nausea and vomiting * Symptoms of depression or anxiety If you experience any of the following, call 911 or go to the nearest Emergency Room. * Chest pain * Problems breathing * Seizure activity * Partial or complete paralysis of a body part, slurred speech, weakness or drooping of the face, or a sudden inability to walk or hold your balance You may take regular strength Ibuprofen over the counter (up to 4 tabs every 8 hours) or Aleve for pain/discomfort. Take a stool softener if you have constipation. Allergies/Adverse Reactions: Allergies amoxicillin Allergy (Verified 09/03/17 09:08) Other erythromycin base Allergy (Verified 09/03/17 09:08) Other Penicillins Allergy (Verified 09/03/17 09:08) Hives Medications to take at Discharge Vits [Prenatabs FA] 1 tab PO DAILY 07/17/19 Please Follow Up With: Mariella Contreras MD - visit When: 6 weeks Primary Care Physician: Lovely Freeman MD [Primary Care Provider] - Test Results: Test results from this visit will be discussed in further detail at your follow- up appointment, if applicable.
--- NOTE | 2019-07-19 09:35 | PCM.PN.OB ---
Patient Problems: Active and Suspected Problems (Last Updated 07/17/19 @ 12:[address] Mariella Bae MD) (vaginal after ) (Acute) 39 weeks gestation of (Acute) Encounter for trial of labor (Acute) Subjective: Whitney reports sharp burning sensation externally while voiding x 1 overnight. She suspects this is from labial tear. No further recurrences and otherwise doing well. Denies heavy lochia. Pain is minimal. She continues nursing. Desires discharge today. Objective: AVSS - Physical Exam Vitals/I&O's: Vital Signs Temp Pulse Resp BP Pulse Ox 97.2 F L 86 18 110/68 96 07/19/19 07:57 07/19/19 07:57 07/19/19 07:57 07/19/19 07:57 07/18/19 01:32 Oxygen Delivery Method Room Air Weight: 92.533 kg Body Mass Index (BMI) 31.9 Intake and Output for Last 24 Hours 07/17/19 07/18/19 07/19/19 23:59 23:59 23:59 Intake Total 2584.14 / 2584.14 1483.34 / 1483.34 Output Total 600 / 600 500 / 500 Balance 1983.14 / 1983. 983.34 / 983.34 General: Alert, Oriented x3, Cooperative, No apparent distress HEENT: Atraumatic, Normocephalic Lungs: Clear to auscultation, Normal air movement Cardiovascular: Regular rate, Regular Rhythm, Normal S1, Normal S2 Abdomen: Soft, Non Tender, Non-Distended, - - Fundus firm and nontender, lochia scant Extremities: No edema, No Calf Tenderness Neurological: Neuro grossly intact Psych/Mental Status: Normal Affect, Appropriate, Alert and oriented to time, place, person, mood and affect Current Medications Acetaminophen (Tylenol) 1,000 mg PO Q8H PRN PRN PRN Reason: Pain Score 1-3/10 Last Admin: 07/19/19 00:25 Dose: 1,000 mg Documented by: Bisacodyl (Dulcolax) 10 mg RECTAL UD PRN PRN Reason: If no BM Dibucaine (Dibucaine) 1 applic TOPICAL TID PRN PRN; Protocol PRN Reason: Discomfort Hydrocortisone (Hytone) 1 applic TOPICAL TID PRN PRN; Protocol PRN Reason: Discomfort Ibuprofen (Motrin) 600 mg PO Q6H PRN PRN PRN Reason: Pain Score 1-3/10 Last Admin: 07/19/19 07:48 Dose: 600 mg Documented by: Methylergonovine Maleate (Methergine) 0.2 mg IM X1 PRN PRN Reason: Excess bleeding/uterine atony Ondansetron HCl (Zofran) 4 mg IV Q4H PRN PRN PRN Reason: NAUSEA Last Admin: 07/17/19 23:49 Dose: 4 mg Documented by: Multivit/Folic Acid/Iron (Prenatabs Fa) 1 tablet PO DAILY MITZI Last Admin: 07/18/19 11:14 Dose: 1 tablet Documented by: Senna/Docusate Sodium (Senokot-S, Britt-Colace) 1 - 2 tablet PO DAILY PRN PRN PRN Reason: Constipation Last Admin: 07/19/19 07:47 Dose: 2 tablet Documented by: Simethicone (Mylicon) 80 mg PO PCHS PRN PRN Reason: Indigestion/Stomach pain Sodium Chloride () 5 - 15 ml IV UD PRN PRN Reason: SALINE FLUSH Last Admin: 07/18/19 04:33 Dose: 10 ml Documented by: Medical Necessity - Tobacco Use Smoking Status: Never smoker Assessment/Plan All Active Problems (Last Updated 07/17/19 @ 12:[address] Mariella Bae MD) (vaginal after ) (Acute) 39 weeks gestation of (Acute) Encounter for trial of labor (Acute) This is a 34 year-old, G [2], P [2002 PPD#1 s/p doing well. -Rh positive - -Routine care -Plan for d/c to home today.
== END 2019-07-19 10:30 | disposition home or self-care (01) | DRG 806 ==
LOC: OBT 09:02 → WP 09:02
PROVIDERS: Admitting Provider Obstetrics & Gynecology; PCP Family Medicine; Referring Provider Obstetrics & Gynecology; Visit Provider Obstetrics & Gynecology
DX: O34.219 Maternal care for unspecified type scar from previous cesarean delivery (principal); O99.354 Diseases of the nervous system complicating childbirth; Z37.0 Single live birth; G58.9 Mononeuropathy, unspecified; O69.81X0 Labor and delivery complicated by cord around neck, without compression, not applicable or unspecified; Z3A.39 39 weeks gestation of pregnancy; Z88.0 Allergy status to penicillin; Z80.3 Family history of malignant neoplasm of breast
CPT/HCPCS: 59025; 59050; 76815; 82565; 84112; 85025; 86850; 86900; 86901; 87635; 99218; G2023; J7040; J7120; A4216; G0378; J2405; U0003

== ENCOUNTER → 2019-08-26 15:51 | Outpatient (CLI) | payer OTHER, SELFPAY ==
[2019-07-17 08:25] VITALS: BMI 31.9
[2019-09-03 16:08] LABS: HPV APTIMA, High Risk Negative (Negative)
== END ==
PROVIDERS: PCP Family Medicine; Visit Provider Obstetrics & Gynecology
DX: Z12.4 Encounter for screening for malignant neoplasm of cervix (principal)
CPT/HCPCS: 87624; 88175; G0145

== ENCOUNTER → 2022-02-26 | Outpatient (CLI) | payer OTHER, SELFPAY ==
[2022-02-26 12:21] LABS: Cholesterol 152 mg/dL (200); High Density Lipoprotein 51 mg/dL; Triglycerides 66 mg/dL; Very Low Density Lipoprotein 13 mg/dL (5-40)
== END | disposition home or self-care (01) ==
LOC: BIMLAB 08:48
PROVIDERS: PCP Family Medicine; Referring Provider Family Medicine; Visit Provider Family Medicine
DX: Z00.00 Encounter for general adult medical examination without abnormal findings (principal)
CPT/HCPCS: 36415; 80061

== ENCOUNTER → 2022-12-18 | Outpatient (CLI) | payer OTHER, SELFPAY ==
[2022-12-21 09:10] LABS: Chlamydia By Nucleic Acid AMP Negative (Negative); Gonococcus By Nucleic Acid AMP Negative (Negative)
== END | disposition home or self-care (01) ==
LOC: LABSPEC 16:31
PROVIDERS: PCP Family Medicine; Referring Provider Obstetrics & Gynecology; Visit Provider Obstetrics & Gynecology
DX: Z34.90 Encounter for supervision of normal pregnancy, unspecified, unspecified trimester (principal)
CPT/HCPCS: 87086; 87088; 87491; 87591

== ENCOUNTER → 2023-01-14 | Outpatient (CLI) | payer OTHER, SELFPAY ==
[2023-01-14 15:48] LABS: Absolute Lymphocyte Count 1.78 X10^3/uL (0.83-4.51); Absolute Neutrophil Count 8.4 X10^3/uL (2.0-7.7); Basophil# 0.04 X10^3/uL; Basophil% 0.4 % (0-1); Eosinophil# 0.16 X10^3/uL; Eosinophils% 1.5 % (0-5); Hematocrit 33.1 % (37-47); Hemoglobin 11.2 g/dL (12.0-15.0); Lymphocyte # 1.78 X10^3/ul (0.83-4.51); Lymphocyte % 16.2 % (19-41); Mean Corp Hgb Conc 33.8 g/dL (32-36); Mean Corpuscular Hgb 30.4 pg (27.0-32.0); Mean Corpuscular Volume 89.7 fL (81-99); Mean Platelet Vol. 9.4 fl (6.2-12.0); Monocyte# 0.55 X10^3/uL; NRBC Flagged by Analyzer 0 % (0-5); Neutrophil # 8.39 X10^3/uL (2.7-7.7); Neutrophil % 76.4 % (47-70); Platelet Count 263 K/mm3 (150-450); RBC Distribution Width CV 13.1 % (11.6-14.6); RBC Distribution Width SD 42.5 fl (35.1-43.9); Red Blood Count 3.69 M/mm3 (4.2-5.4)
[2023-01-14 16:09] LABS: Thyroid Stim Hormone (TSH) 0.52 uIU/mL (0.358-3.74)
[2023-01-14 16:38] LABS: HIV - WCH Non-Reactive (Nonreactive); Hepatitis B Surface Antigen Non-Reactive (Nonreactive); Hepatitis C Antibody Non-Reactive (Nonreactive); Rubella IgG Reactive (Nonreactive); Syphilis Antibodies Non-reactive
== END | disposition home or self-care (01) ==
LOC: PAVLAB 15:22
PROVIDERS: PCP Family Medicine; Referring Provider Obstetrics & Gynecology; Visit Provider Obstetrics & Gynecology
DX: Z34.90 Encounter for supervision of normal pregnancy, unspecified, unspecified trimester (principal); E01.1 Iodine-deficiency related multinodular (endemic) goiter
CPT/HCPCS: 36415; 84443; 85025; 86703; 86762; 86780; 86803; 86850; 86900; 86901; 87340

== ENCOUNTER 2023-04-08 07:50 | Outpatient (CLI) | payer OTHER, SELFPAY ==
[2023-04-08 08:08] LABS: Absolute Lymphocyte Count 1.56 X10^3/uL (0.83-4.51); Basophil# 0.07 X10^3/uL; Basophil% 0.6 % (0-1); Eosinophil# 0.29 X10^3/uL; Eosinophils% 2.5 % (0-5); Hematocrit 32.6 % (37-47); Lymphocyte # 1.56 X10^3/ul (0.83-4.51); Lymphocyte % 13.4 % (19-41); Mean Corp Hgb Conc 33.7 g/dL (32-36); Mean Corpuscular Hgb 31.4 pg (27.0-32.0); Mean Corpuscular Volume 93.1 fL (81-99); Mean Platelet Vol. 9.2 fl (6.2-12.0); Monocyte# 0.58 X10^3/uL; NRBC Flagged by Analyzer 0 % (0-5); Neutrophil # 8.98 X10^3/uL (2.7-7.7); Neutrophil % 76.9 % (47-70); Platelet Count 247 K/mm3 (150-450); RBC Distribution Width CV 13.1 % (11.6-14.6); RBC Distribution Width SD 44.1 fl (35.1-43.9); White Blood Count 11.7 K/mm3 (4.4-11.0)
--- OUTSIDE RECORDS SUMMARY | 2023-04-08 08:10 | XMS RPT_ITS | CCD ---
Author Name Unknown Address [address] [place] [address] Organization [facility] Care Team Providers Care Foam Rubber Curer Name Role Phone EDEL SHEPARD Referring Unavailable LOVELY FREEMAN Primary Care Unavailable LD WHITE Attending Unavailable Montana Carrillo Unavailable [phone] Ita Hernandez MD Unavailable Lovely Freeman MD Primary Care Provider [place] ABEL Attending Unavailable MON[place]NA ABEL Referring Unavailable LOVELY FREEMAN Primary Care Unavailable Allergies Allergy Classification Reported Allergen(s) Allergy Type Date of Onset Reaction(s) Facility (1 source) Amoxicillin Drug Allergy 8 Dyspepsia [facility] (1 source) Erythromycin Drug Allergy 8 [facility] (1 source) Penicillins Propensity to adverse reactions to drug 8 Hives, Shortness of Breath [facility] Medications Current Medications Medication Drug Class(es) Dates Sig (Normalized) Sig (Original) norethindrone 0.35 mg oral tablet (1 source) Start: 03-06-2022 take 1 tablet by mouth once daily Norethindrone 0.35 MG tablet Take 1 tablet by mouth daily. 03/06/2022 Active Vit-Fe Fumarate-FA ( VITAMIN PO) (1 source) Vit-Fe Fumarate-FA ( VITAMIN PO) Take by mouth. Active Problems Active Problems Problem Classification Problem Date Documented Da te Episodic/Chronic Nonmalignant breast conditions (5 sources) Fibrocystic changes of bilateral breasts; Translations: [Diffuse cystic mastopathy of right breast] Onset: 03-27-2023 03-27-2023 Chronic Other nutritional; endocrine; and metabolic disorders (1 source) Obese class I; Translations: [Obesity, unspecified] Onset: 02-10-2018 02-10-2018 Chronic Other screening for suspected conditions (not mental disorders or infectious disease) (3 sources) Patient encounter status; Translations: [Encounter for screening mammogram for malignant neoplasm of breast] Onset: 03-27-2023 03-27-2023 Episodic Residual codes; unclassified (1 source) Family history of breast cancer; Translations: [Family history of malignant neoplasm of breast] 03-27-2023 Episodic Residual codes; unclassified (1 source) Family history of malignant neoplasm of breast in first degree relative; Translations: [Family history of malignant neoplasm of breast] 03-11-2017 Episodic Residual codes; unclassified (2 sources) Family history of malignant neoplasm of breast; Translations: [Family history of malignant neoplasm of breast] Onset: 03-27-2023 Episodic Past or Other Problems Problem Classification Problem Date Documented Da te Episodic/Chronic Mood disorders (1 source) Mood disorders Onset: 03-27-2023 03-27-2023 Residual codes; unclassified (1 source) At high risk for breast cancer; Translations: [Other specified personal risk factors, not elsewhere classified] Onset: 03-22-2022 03-22-2022 Episodic Results Test Name Value Interpretation Reference Range Facil ity Vital Signs Date Time Vital Sign Value Performing Clinician Blue ambrosio 03-27-2023 13:35-0500 Body mass index (BMI) [Ratio] 28.98 kg/m2 Montana Abel APRN-FIRE EQUIPMENT REPAIRER INSPECTOR Work Phone: [facility] 03-27-2023 13:35-0500 Body temperature 97.3 [degF] Montana Abel CAPTAIN'S ASSISTANT-FIRE EQUIPMENT REPAIRER INSPECTOR Work Phone: [facility] 03-27-2023 13:35-0500 Body weight 83.92 kg Montana Abel CAPTAIN'S ASSISTANT-FIRE EQUIPMENT REPAIRER INSPECTOR Work Phone: [facility] 03-27-2023 13:35-0500 Diastolic blood pressure 56 mm[Hg] Montana Colten CAPTAIN'S ASSISTANT-FIRE EQUIPMENT REPAIRER INSPECTOR Work Phone: [facility] 03-27-2023 13:35-0500 Heart rate 93 /min Montana Colten CAPTAIN'S ASSISTANT-FIRE EQUIPMENT REPAIRER INSPECTOR Work Phone: [facility] 03-27-2023 13:35-0500 Respiratory rate 16 /min Montana Colten CAPTAIN'S ASSISTANT-FIRE EQUIPMENT REPAIRER INSPECTOR Work Phone: [facility] 03-27-2023 13:35-0500 Systolic blood pressure 114 mm[Hg] Montana Casasurley CAPTAIN'S ASSISTANT-FIRE EQUIPMENT REPAIRER INSPECTOR Work Phone: [facility] Encounters Encounter Date Encounter Type Care Provider Facility Start: 03-27-2023 ambulatory [place] galeasy:BTEO Start: 03-27-2023 End: 03-27-2023 Office outpatient visit 15 minutes Montana Abel APRN-FIRE EQUIPMENT REPAIRER INSPECTOR Work Phone: Division of Surgical Oncology Plan of Treatment Date Care Activity Detail Author Start: 09-25-2023 End: 04-24-2024 MG Breast - bilateral Screening MAMMO SCREENING WITH NICOLE BILATERAL Imaging Routine Encounter for screening mammogram for malignant neoplasm of breast Expected: 09/25/2023, Expires: 04/24/2024 [facility] Payers Date Payer Category Payer Unknown [id number] 2016 Unknown [employer] [place] [id number] 2016-Present [address] [place] [address] [id number] 1987 Unknown [id number] 1987 Unknown [id number] Social History Date Type Detail Facility Start: [facility]-22-2022 [facility] Start: 03-22-2022 Tobacco use and exposure Smokeless tobacco non-user [facility] Start: 03-27-2023 Alcoholic beverage intake Current non-drinker of alcohol (finding) [facility] Start: 03-16-2020 End: 03-27-2023 History of Social function [facility] Start: 03-16-2020 End: 03-27-2023 Tobacco use panel [facility] How hard is it for y ou to pay for the very basics like food, housing, medical care, and heating Not hard at all [facility] (I/We) worried wheth er (my/our) food would run out before (I/we) got money to buy more. Never true [facility] Start: 1985 Sex assigned at Not on file [facility] Gender identity Identifies as fe male gender (finding) [facility] History of Present illness Narrative 03-27-2023 THOMAS Solano - 03/27/2023 1:00 PM EST Note Date & Type Note Facility 03-27-2023 History of Present illness Narrative Images from the original note were not included. [id number] Whitney Jacinto 03/27/2023 REFERRING/PRIMARY PROVIDER(S) Primary Care Provider: No primary care provider on file. History of Present Illness: Whitney Jacinto is a 38 y.o. White female established patient who presents to the [facility] today for routine follow-up. Chief Complaint Patient presents with Follow-up No breast concerns - here for exam only due to high risk for breast cancer (mother) She has fibrocystic breast changes and family history of breast cancer in her mother at 39yrs. 03/27/23 interval update She presents today for routine follow up, no imaging. She cancelled the mammogram d/t being . She denies any new breast concerns, including lumps, skin changes, nipple changes/discharge or pain. She is with her 3rd daughter, due in July 2023. She does plan to breastfeed. She is currently on pelvic rest d/t low lying placenta. Her medical, surgical, social and family history was reviewed and updated. Her allergies and current medications were reviewed and updated. She denies any changes to her medical, surgical, social or family history since her last visit. PERSONAL BREAST/CHIEF MEDICAL TECHNOLOGIST HISTORY: Breast biopsy: No Breast cysts: No Breast surgery: No Premenopausal with intact uterus and ovaries Contraception: none currently; hx of OCP CHIEF MEDICAL TECHNOLOGIST exams: annually CANCER SURVEILLANCE/HEALTH MAINTENANCE: Colonoscopy: never Skin cancer screening: no Eye exams: No Dental exams: annually Vitamin D deficiency No BMD: No RISK FACTORS FOR BREAST CANCER: Age at the onset of menses: 16yrs P: 1 Age at the of first child: 32yrs She Breast fed Yes Infertility medications use: no Chest Irradiation/mantle : no Postmenopausal obesity: NA Body mass index is 28.98 kg/m . Mammographic density: The breast is heterogeneously dense, which may obscure small masses. Personal History of Benign Atypical Breast Biopsy: no Social History Tobacco Use Smoking status: Never Smokeless tobacco: Never Substance Use Topics Alcohol use: No Drug use: No GENETICS: Ashkenazi Ancestry: No Genetic counseling: Yes, she met with [facility] Angulo. She meets criteria for testing, but has been unsure if she wants to pursue this. She is still unsure at this time. She knows to let me know if she wants to pursue the testing. Genetic Testing: None Genes tested: None Family members with testing: No FAMILY HISTORY: Family History Problem Relation Age of Onset Breast Cancer Mother 39 Inflamatory stage 4 Colorectal Cancer Paternal Grandfather 62 Breast Cancer Maternal Cousin age late 50's Breast Cancer Maternal Cousin age 70's Ovarian Cancer Neg Hx No of sisters: 1 No of maternal aunts: 5 No of paternal aunts: 3 No of daughters: 1 Family history of breast cancer: yes Mother at 39yrs with inflammatory breast cancer; ; untested Maternal 2nd cousin in her late 50's Maternal 2nd cousin in her 70's Family history of ovarian cancer: no Have any Family Members had Genetic Testing? no Other relevant Cancers as below: Colorectal cancer in her paternal grandfather at 62yrs There is no family history of prostate, uterine, pancreatic, gastric, brain, renal cell or thyroid cancer. There is no family history of melanoma, sarcoma or leukemia. Osteoporosis: no Stroke: no Blood Clot: no Heart attack: yes Paternal grandmother had a CABG when she was older, unsure if had MT Thyroid Nodule or Goiter: no Autism: no REVIEW OF SYSTEMS: She denies any recently unintentional weight loss, CP, SOB, cough or severe headache. PHYSICAL EXAMINATION VITAL SIGNS: BP 114/56 Pulse 93 Temp 97.3 F (36.3 C) Resp 16 Wt 83.9 kg (185 lb) BMI 28.98 kg/m Smoking Status Never GENERAL: Well nourished, well developed female No acute distress. HEENT: Head: Normocephalic and atraumatic. Eyes: PERRL EOMI Neck: Supple no thyromegaly. Breasts and Regional Lymph Nodes: The Patient was examined in the upright and supine positions. The breasts are asymmetrical in appearance without visible skin or nipple changes. Left breast is visually slightly larger than the right breast. Right breast: The patient has no discrete, concerning, palpable right breast masses. Left breast: The patient has no discrete, concerning, palpable left breast masses. There are no suspicious nipple abnormalities, nipple discharge or suspicious skin changes of her breast skin bilaterally. The axillary tails are normal. Lumpy breast parenchyma bilaterally upper outer quadrants of both breasts R>L without any discrete masses. No chest wall abnormalities. The patient has no cervical, supraclavicular or axillary adenopathy bilaterally. Exam stable on 03/27/23 Risk Calculation: Her risk was calculated on 03/11/17 using these models as below: Michelle model score: 5 year risk: 0.5% MICHELLE calculated on 03/22/22 since turning 37yrs Lifetime risk: 18.1% Joaquín: Risk by age 79 yrs: 16% ESHA score: version 8: IMAGING: No imaging today IMPRESSION/PLAN: IMPRESSION: She is a 38 y.o. female with fibrocystic breast changes and family history of breast cancer. There is no evidence of malignancy. The patient was reassured as to the benign nature of her clinical exam and imaging. PLAN: Recommendations: She will continue with annual mammogram (she will get this in September 2023 after having the baby) and biannual clinical breast exams (she does one of her CBE with her CHIEF MEDICAL TECHNOLOGIST in Sep). She meets criteria for MRI. We reviewed the pros/cons of this imaging. We will discuss this again in at her next appointment. Genetics: We discussed again the option of genetic testing. She is still unsure. She knows to let me know if she wants to pursue this. Chemoprevention discussion: She does not currently meet criteria for this intervention, with 5yr MICHELLE <1.7%. Lifestyle changes: The patient was given information in her AVS regarding health promotion and lifestyle recommendations for breast health. Followup: Return in about 6 months (around 09/25/2023) for Mammo and same day HR return with Montana Abel. She was encouraged on SBA. She was advised to reach out as needed with any new or worsening concerns. THOMAS Solano spent approximately 20 minutes preparing for and in direct patient care with this patient 03/27/23 documented in this encounter [facility] Instructions 03-27-2023 Patient Instructions Note Date & Type Note Facility 03-27-2023 Instructions THOMAS Solano - 03/27/2023 1:00 PM EST Health Promotion/Lifestyle Recommendations for Breast Health Self Breast Awareness: We do recommend that you continue to perform monthly breast self-exams. If you are menstruating, we would recommend after your cycle has completed. If you are post-menopausal, we recommend that you pick a day of the month to do your monthly exam. If you do not have breasts, it is important to examine your skin, chest wall, and underarms for any new masses or skin lesions. If you find any areas of concern, please call us to discuss or be seen. Nutrition: Below are some guidelines for health lifestyle that we recommend. Adopt a plant based diet. Aim to make a majority of your foods (2/3 of your diet) from plant based sources. This includes, fruits, vegetables, whole grains, nuts, legumes, beans, and seeds. Try to get in a rainbow of fruits/vegetables each day to maximize your health benefits. Strive for weight management Choose healthy fats in moderation Good rule of thumb is 20% of total calories from fat. Focus should be on choosing the right fats Eat more monounsaturated fats (olive/canola oil, nuts, avocado) and omega-3 polyunsaturated fats (cold-water fish, walnuts). Limit saturated fats (animal fats, butter, dairy). Avoid trans fats (partially hydrogenated vegetable oil, commercial baked goods). Eat in moderation - omega-6 polyunsaturated fats (vegetable oils) Maintain good control of blood sugars. Avoid simple carbohydrates which make your blood sugar rise high and quickly. (the whites : Breads, pasta, rice, potatoes, candy and sweets, table sugar, soda, juice). Choose complex carbohydrates which provide a gradual release of sugar and energy (whole grains, whole fruits, sweet potatoes, corn, peas, winter squash). Include a healthy protein when consuming carbohydrates to help further control blood sugar levels, decrease fatigue and help to feel full longer (lean meats, fish, skinless poultry, nuts and nut butters (i.e. Peanut butter), beans and daley dip (i.e. hummus) Soy: Moderate intake of whole soy foods as part of an overall healthy diet has not shown a risk for breast cancer. Choosing soy, up to 2-3 servings of whole soy foods/day as prat of a plant-based dietary pattern is reasonable. However, the safety of concentrated soy in the form of soy protein powders, soy protein isolates, or soy supplements is unknown and we recommend you avoid these at this time. Weight Management: Weight management is important for your overall health as well as for breast health. To help you reach weight management goals we have many resources including a registered dietitian and physical therapy department who will develop a plan to help you reach your goals. Alcohol Consumption: We recommend that you drink alcohol in moderation, if at all. You should limit alcohol consumption to no more than one alcoholic drink per day. Smoking: If you are currently a smoker, we recommend that you stop smoking. There is evidence that smoking increases the risk of breast cancer recurrence. Please speak to your health care providers regarding this as there are many programs offered here at the [facility] for assistance with smoking cessation. Exercise: Studies have shown that 30 minutes of exercise 3-5 times/week can have positive benefits. Exercise also promotes heart health and overall wellness. Recommended exercise prescription should include the following: Frequency: 5 days per week Duration: 30 minutes minimum per day Moderate intensity: Examples include brisk walked (treadmill speed of 2.9-3.2mph), vigorous housework or dancing Always be able to carry on a conversation while you exercise Vary your activity to reduce overuse injuries to muscles and joints to increase your enjoyment level documented in this encounter [facility] Progress note 07-09-2020 Note Date & Type Note Facility 07-09-2020 Note HNO ID: [id number] Author: Kirstin Goss PA-C Service: ? Author Type: Physician Replenishment Specialist Type: Progress Notes Filed: 07/09/2020 10:12 AM Note Text: This note was created using Webcollage. Subjective Whitney Jacinto is a 35 year old female. HPI Patient presents with cough and raspy voice for a week. She states her cough worsened last night. Her 2 children are sick with similar symptoms. 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 She has not had a fever. No chest pain. No shortness of breath. She denies being vaccinated for Covid. She denies a known exposure. No change in smell or taste. She did have some posttussive vomiting last night. No diarrhea. She had tried an [id number] cough suppressant which really was not helping much. Review of Systems Constitutional: Negative. HENT: Positive for congestion and sore throat. Negative for ear pain. Respiratory: Positive for cough. Negative for shortness of breath and wheezing. Cardiovascular: Negative. Gastrointestinal: Negative. Genitourinary: Negative. Musculoskeletal: Negative. All other systems reviewed and are negative. PAST MEDICAL HISTORY Diagnosis Date - Depression no meds since 2010 - Scoliosis Current Outpatient Medications Medication Sig Dispense Refill - JENCYCLA 0.35 mg tablet Take 1 tablet by mouth once daily. - multivitamin tablet Take 1 tablet by mouth once daily. 0 - predniSONE (DELTASONE) 20 mg tablet Take 2 tablets by mouth once daily for 5 days. 10 tablet 0 - albuterol HFA (PROAIR HFA) 90 mcg/actuation inhaler Inhale 2 Puffs as instructed every 6 hours as needed. 1 Each 0 - scopolamine 1.5 mg Apply 1 Patch as directed as directed. (Patient not taking: Reported on 07/09/2020 ) 4 Patch 0 - Levonorgestrel-Ethinyl Estrad (SEASONALE) 0.15-30 mg-mcg per tablet Take 1 tablet by mouth once daily. (Patient not taking: Reported on 07/09/2020 ) No current facility-administered medications for this visit. PAST SURGICAL HISTORY Procedure Laterality Date - KNEE SCOPE,CLEAN/DRAIN 04/2006 right knee - REMOVAL OF TONSILS,<14 Y/O Tonsillectomy, age 8 FAMILY HISTORY Problem Relation Age of Onset - Breast Cancer Mother - Heart Maternal Grandfather - Diabetes Maternal Grandfather - Hypertension Maternal Grandfather - Cerebral Embolism Paternal Grandfather - Diabetes Paternal Aunt - Colon Cancer Paternal Grandfather 60's - Diabetes Maternal Uncle Social History Tobacco Use - Smoking status: Never Smoker - Smokeless tobacco: Never Used Substance Use Topics - Alcohol use: Yes Comment: occassionally - Drug use: No Objective BP 110/86 Pulse 103 Temp 36.9 ?C (98.5 ?F) (Left Tympanic) Resp 16 Wt 86.5 kg (190 lb 9.6 oz) LMP 09/03/2012 SpO2 96% BMI 30.76 kg/m? Physical Exam Vitals reviewed. Constitutional: Appearance: Normal appearance. HENT: Head: Normocephalic and atraumatic. Right Ear: Tympanic membrane, ear canal and external ear normal. Left Ear: Tympanic membrane, ear canal and external ear normal. Nose: Nose normal. Mouth/Throat: Mouth: Mucous membranes are moist. Pharynx: Oropharynx is clear. Comments: Hoarse voice Cardiovascular: Rate and Rhythm: Normal rate and regular rhythm. Heart sounds: Normal heart sounds. Pulmonary: Effort: Pulmonary effort is normal. No respiratory distress. Comments: Mildly diminished in the lung bases . No wheezing or Rales. Musculoskeletal: Cervical back: Neck supple. Lymphadenopathy: Cervical: No cervical adenopathy. Skin: General: Skin is warm. Neurological: General: No focal deficit present. Mental Status: She is alert and oriented to person, place, and time. Assessment and Plan ASSESSMENT/PLAN: 1. Cough - ICD9: 786.2, ICD10: R05 (primary diagnosis) - XR CHEST 2V FRONTAL/LAT - 2019 CORONAVIRUS 2. Acute bronchitis, unspecified organism - ICD9: 466.0, ICD10: J20.9 Chest x-ray was clear here. I feel she does have a viral bronchitis. Covid testing done to rule out. I did give her a prescription for prednisone and albuterol. Discussed waiting 4 hours after taking the prednisone to breast-feed. Discussed red flag symptoms. Follow-up with PCP if not improving. Patient agreeable. Kirstin Goss PA-C [facility] Progress note 07-09-2020 Note Date & Type Note Facility 07-09-2020 Note HNO ID: [id number] Author: RT Harvey(R) Service: ? Author Type: Psychiatry Teacher Type: Progress Notes Filed: 07/09/2020 9:52 AM Note Text: Radiology Service Progress Note PATIENT NAME: Whitney Jacinto DATE OF SERVICE: July 09, 2020 TIME: 9:43 AM PATIENT IDENTITY VERIFICATION COMPLETED USING TWO (2) IDENTIFIERS: Name and Date of confirmed by patient verbally. FALL SCREENING: Has the patient had 2 falls in the last year or 1 fall with injury or currently using an Ambulatory Assistive Device (Walker, Cane, Wheelchair, Crutches, etc.)? No PATIENT GENDER DATA: Female. status: : No status: NO. PATIENT RELEVANT IMPLANT DATA REVIEWED: Yes RADIOLOGY DEPARTMENT: General X-ray: Exam(s) Completed: Chest X-Ray PERIPHERAL IV DATA: Not applicable SIGNED BY: RT Harvey(R) July 09, 2020 9:43 AM [facility] Evaluation note Note Date & Type Note Facility documented in this encounter [facility] Summary Purpose Family History No Family History Records FoundNo Family History Records FoundNo Family History Records Found Advance Directives No Advanced Directives Records FoundNo Advanced Directives Records FoundNo Advanced Directives Records Found Reason for Referral Specialty Diagnoses / Procedures Referred By Sidney jackson Referred To Contact Diagnoses Encounter for screening mammogram for malignant neoplasm of breast Procedures MAMMO SCREENING WITH NICOLE BILATERAL Montana Abel, CAPTAIN'S ASSISTANT-FIRE EQUIPMENT REPAIRER INSPECTOR [address] [place] [address] Referral ID Status Reason Start Date Expiration Date V isits Requested Visits Authorized [id number] New Request 03/27/2023 04/20/2024 1 1 Additional Source Comments INFORMATION SOURCE (unrecogn ized section and content) DATE CREATED AUTHOR AUTHOR'S ORGANIZ ATION 02/26/2023 [facility] DATE CREATED AUTHOR AUTHOR'S JENNIFER GARDNER 03/29/2023 [facility] Reason for Visit (unrecogniz ed section and content) Care Teams (unrecognized sec tion and content) FOR RECORDS PERTAINING TO PATIENTS WHO ARE OR HAVE BEEN ENROLLED IN A CHEMICAL DEPENDENCY/SUBSTANCEABUSE PROGRAM, SOME INFORMATION MAY BE OMITTED. This clinical summary was aggregated from multiple sources. Caution should be exercised in using it in the provision of clinical care. This summary normalizes information from multiple sources, and as a consequence, information in this document may materially change the coding, format and clinical context of patient data. In addition, data may be omitted in some cases. CLINICAL DECISIONS SHOULD BE BASED ON THE PRIMARY CLINICAL RECORDS. [employer] provides no warranty or guarantee of the accuracy or completeness of information in this document.
[2023-04-08 08:37] LABS: Glucose Challenge Gest 1H 50g 108 mg/dL (70-140)
[2023-04-08 09:00] LABS: HIV - WCH Non-Reactive (Nonreactive); Syphilis Antibodies Non-reactive
== END 2023-04-08 23:59 | disposition home or self-care (01) ==
LOC: PAVLAB 07:51
PROVIDERS: PCP Family Medicine; Referring Provider Obstetrics & Gynecology; Visit Provider Obstetrics & Gynecology
DX: O09.90 Supervision of high risk pregnancy, unspecified, unspecified trimester (principal); Z3A.00 Weeks of gestation of pregnancy not specified; Z13.1 Encounter for screening for diabetes mellitus
CPT/HCPCS: 36415; 82950; 85025; 86703; 86780

== ENCOUNTER → 2023-04-29 | Outpatient (CLI) | payer OTHER, SELFPAY ==
--- NOTE | 2023-04-29 15:20 | US_ITS ---
STUDY: SECOND AND THIRD TRIMESTER OBSTETRICAL ULTRASOUND - LIMITED REASON FOR EXAM: Female, 38 years old follow-up on low lying placenta, 28 weeks, growth LMP: October 14, 2022. PRIOR ULTRASOUND: None. TECHNIQUE: Transabdominal TECHNICAL QUALITY: Adequate. FINDINGS: There is a single intrauterine fetus. The fetus is in a breech presentation. There is demonstrated cardiac activity with a heart rate of 141 bpm. There is a normal amniotic fluid volume. The largest amniotic fluid pocket measures 4.5 cm. The amniotic fluid index (ALANNA) is 14.3 cm. The placenta is anterior in location and is not low lying. The tip of the placenta is at 4.8 cm from the cervical os. There are Grade 1 placental changes. The cervix measures 4.2 cm in length. BIOMETRY: BPD: 7.2 cm: 28 weeks, 5 days HC: 9.3 cm: 28 weeks, 6 days AC: 26.5 cm: 29 weeks, 5 days FL: 25.5 cm: 20 weeks, 4 days Age by LMP: 28 weeks, 1 days. JOSHUA by LMP: July 21, 2023. age by current US: 28 weeks, 6 days. JOSHUA by current US: July 16, 2023. Estimated weight: 1362 grams, +/- 204 grams, 78 percentile. US/OB Limited With Biometrics IMPRESSION: Single live intrauterine gestation with mean gestational age of 28 weeks and 6 days. Anterior placenta. No evidence of low-lying placenta. Electronically Signed: Jorgito Camara MD at 12:42 EDT ,
== END | disposition home or self-care (01) ==
LOC: US 15:19
PROVIDERS: PCP Family Medicine; Referring Provider Obstetrics & Gynecology; Visit Provider Obstetrics & Gynecology
DX: O44.43 Low lying placenta NOS or without hemorrhage, third trimester (principal); Z3A.28 28 weeks gestation of pregnancy
CPT/HCPCS: 76816

== ENCOUNTER → 2023-06-24 | Outpatient (CLI) | payer OTHER, SELFPAY ==
--- NOTE | 2023-06-24 15:17 | US_ITS ---
STUDY: SECOND AND THIRD TRIMESTER OBSTETRICAL ULTRASOUND - LIMITED REASON FOR EXAM: Female, 38 years old AMA-GROWTH LMP: PRIOR ULTRASOUND: April 29 2023 report only TECHNIQUE: Transabdominal TECHNICAL QUALITY: Adequate. FINDINGS: There is a single intrauterine fetus. The fetus is in a cephalic presentation. There is demonstrated cardiac activity with a heart rate of 157 bpm. There is a normal amniotic fluid volume. The largest amniotic fluid pocket measures 11.4 cm. The amniotic fluid index (ALANNA) is 16.8 cm. The placenta is anterior and not low-lying There are Grade 1 placental changes. The cervix was not visualized. BIOMETRY: BPD: 9.18 cm: 37 weeks, 2 days HC: 33.24 cm: 37 weeks, 6 days AC: 33.19 cm: 37 weeks, 1 days FL: 7.09 cm: 36 weeks, 3 days Age by LMP: 36 weeks, 1 days. JOSHUA by LMP: July 21, 2023. age by prior US: 28 weeks, 6 days. JOSHUA by prior US: July 16, 2023. age by current US: 37 weeks, 1 days. JOSHUA by current US: July 14, 2023. Estimated weight: 3109 grams, +/- 466 grams, 75.93 percentile. US/OB Limited With Biometrics IMPRESSION: Viable intrauterine gestation approximately 37 weeks gestational age with appropriate growth since prior study Electronically Signed: Marlo Menjivar MD at 16:37 EDT Reading Location ID and State: [facility] / [place] Tel , Service support ,
== END | disposition home or self-care (01) ==
LOC: US 15:16
PROVIDERS: PCP Family Medicine; Referring Provider Obstetrics & Gynecology; Visit Provider Obstetrics & Gynecology
DX: O09.529 Supervision of elderly multigravida, unspecified trimester (principal); Z3A.00 Weeks of gestation of pregnancy not specified
CPT/HCPCS: 76816

== ENCOUNTER → 2023-06-28 | Outpatient (CLI) | payer OTHER, SELFPAY | END | disposition home or self-care (01) | LOC: LABSPEC 17:57 | PROVIDERS: PCP Family Medicine; Visit Provider Obstetrics & Gynecology | DX: O09.92 Supervision of high risk pregnancy, unspecified, second trimester (principal); Z3A.00 Weeks of gestation of pregnancy not specified | CPT/HCPCS: 87081 ==

== ENCOUNTER 2023-07-16 05:30 | Inpatient (IN) | payer OTHER, SELFPAY ==
[2023-07-16] VITALS (18 sets, daily range): BP systolic 98–136; BP diastolic 62–97; PULSE 62–107; RESP 14–16; TEMP 36.1–36.6; O2SAT 97–100; BMI 31.5
--- NOTE | 2023-07-16 | FALS_PTH ---
PATIENT: DANIELITO JACINTO LOC: WP U#:[id number] AGE/SX: 38/F ROOM: [facility] RE07/16/[address]: Dr. Latasha Duque DO : 1985 BED: 1 DIS: 07/18/2023 SPEC #: [id number] RECD: 07/16/23 10:40 STATUS: KOLTON TREMAINE #: [id number] LINDA: 07/16/23 00:[address]: Latasha Duque DEPT: SURGICAL PATHOLOGY RECD BY: Swetha Marroquin ENTERED: 07/16/23 11:56 SP TYPE: FALL TUBES OTHR DR: Dr. Lovely Freeman MD Tissues: Fallopian tube Procedures: Surgery Specimen Level II HEADER OPERATION: Repeat section PRE-OP DIAGNOSIS: Sterilization TISSUE SUBMITTED: Fallopian tubes- Suture on right tube MICROSCOPIC DIAGNOSIS Right fallopian tube, salpingectomy: Complete cross section of fallopian tube. Benign paratubal cyst. Left fallopian tube, salpingectomy: Complete cross section of fallopian tube with no pathologic change. AM: 07/17/2023 MICROSCOPIC DESCRIPTION Slides are reviewed. GROSS DESCRIPTION Received in fixative is one container labeled with the patient's name and designated bilateral fallopian tubes- suture on right. The specimen consists of bilateral fallopian tubes including fimbrial ends. Right fallopian tube measures 8.0 cm in length and 1.0 cm in diameter. A paratubal cyst is noted measuring 0.5cm in greatest dimension. The left fallopian tube measures 8.0cm in length and 1.0cm in diameter. Sections reveal unremarkable cut surfaces. 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 / SJ: 07/16/23 TC:5 CPT: 23182,19626
[2023-07-16] MEDS: Lactated Ringers 1,000 ML 999 ML IV (05:55)
[2023-07-16] MEDS: Acetaminophen 500 MG Tablet 1000 MG PO ×3 (06:09→18:03)
[2023-07-16 06:11] LABS: Absolute Lymphocyte Count 1.71 X10^3/uL (0.83-4.51); Basophil# 0.04 X10^3/uL; Basophil% 0.5 % (0-1); Eosinophil# 0.14 X10^3/uL; Eosinophils% 1.9 % (0-5); Hematocrit 35.3 % (37-47); Hemoglobin 11.6 g/dL (12.0-15.0); Lymphocyte # 1.71 X10^3/ul (0.83-4.51); Lymphocyte % 23.4 % (19-41); Mean Corp Hgb Conc 32.9 g/dL (32-36); Mean Corpuscular Hgb 29.3 pg (27.0-32.0); Mean Corpuscular Volume 89.1 fL (81-99); Mean Platelet Vol. 9.7 fl (6.2-12.0); Monocyte# 0.43 X10^3/uL; Monocyte% 5.9 % (0-10); NRBC Flagged by Analyzer 0 % (0-5); Neutrophil # 4.97 X10^3/uL (2.7-7.7); Neutrophil % 67.9 % (47-70); Platelet Count 260 K/mm3 (150-450); RBC Distribution Width CV 12.9 % (11.6-14.6); RBC Distribution Width SD 41.9 fl (35.1-43.9); Red Blood Count 3.96 M/mm3 (4.2-5.4); White Blood Count 7.3 K/mm3 (4.4-11.0)
[2023-07-16] MEDS: Lactated Ringers 1,000 ML 150 ML IV (06:59)
--- NOTE | 2023-07-16 07:02 | NURSING ---
Call placed to provider to request 4mg IV Zofran for patient experiencing nausea. Provider states to put in order for IV Zofran 4mg IV x1.
--- NOTE | 2023-07-16 07:34 | HP.PCM.OB_ITS ---
HPI - General General Date of Admission: 07/16/23 HPI Narrative DANIELITO JACINTO, is a 38 y/o @ 39 weeks 2 days who presents to L&D for repeat section and BTL. She has a history of followed by but declines this time. This morning she is very anxious due to delay in her surgery. I explained to her it is due to an emergency on the unit and ofered her promethazine to help with nausea and anxiety. She agrees to try this. Maternal Data Information JOSHUA Calculator Estimated Delivery Date Method Current WG Current Estimate 07/21/23 LMP (Certain) 39w 2d Other Estimates 07/16/23 Ultrasound #1 40w 0d PFSH PFS Medical History Dense breast tissue Family history of breast cancer in first degree relative Encounter for trial of labor 39 weeks gestation of Home Medications ?Medication ?Instructions ?Recorded ?Last Taken ?Type vits,calcium no.78-iron 1 tab PO DAILY 07/17/19 07/15/23 08:00 History fumarate-folic acid 29 mg-1 mg 1 TAB tablet Allergy/AdvReac Type Severity Reaction Status Date / Time amoxicillin Allergy Other Verified 07/16/23 05:48 erythromycin base Allergy Nausea/Vom/ Verified 07/16/23 05:48 Diarrhea Penicillins Allergy Hives Verified 07/16/23 05:48 Family History Mother Breast cancer, Onset Age: 40 Inflammatory breast cancer- remission then had brain cancer-remission then other cancer ending in Surgical History H/O right knee surgery History of tonsillectomy Previous section Social History adopted: No household members: spouse and children number of children: 2 current occupational status: employed 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 current occupational exposures/hazards: No pets and animals: No history of recent travel: No sexually active: Yes Smoking Status: Never smoker alcohol intake: current alcohol intake frequency: holidays/special occasions only details: not while substance use type: does not use well-balanced diet: daily or most days caffeine: No eating out: 1-3 times/week during the past year weight has: decreased > 10 lbs what type of physical activity do you participate in: none conor/mormonism: Jewish seatbelt use: always do you feel safe at home: Yes additional social history: Ernesto- Arana History 3 Elective abortions Hx Para 2 Spontaneous abortions Hx # Term Pregnancies Ectopic pregnancies Hx # Pregnancies Multiple births # of living children 2 Past Pregnancies Del. Date Name GA/Weeks Outcome Route Bth Weight Gen Labor Lgth Anesthesia Del Locatn Provider FOB 09/04/17 Nubia 39 live - full term 8#9oz Female s cadence [facility] Katdanish Martinez Ernesto 07/18/19 Lashaun 39 live - full term 8#7oz Female 24 hrs epid ural [facility] Summer Luz Orozco Delivery Date: 09/04/17 Last Updated by: Romelia Morales Breech, primary c section Delivery Date: 07/18/19 Last Updated by: Romelia Moralse epidural was only effective 2 hours Visit Details Expected Delivery Route/Plan RLTCS BS patient counseled regarding risks/benefits of trial of labor versus repeat . ACOG/uptodate education given to patient. [] % likelihood of success per calculator TOLAC consent form signed: [] Plans Covid status: unvaccinated Flu vaccine: declines Tdap vaccine: given Rhogam: NA LARC form signed: declined movement and labor precautions reviewed. Problem list reviewed and updated with the most current plan of care details and appropriate orders placed. Relevant counseling for the gestational age provided. Continue routine care and follow up unless otherwise noted in visit notes/problem list details OB Flowsheet Initial Weight: Not Recorded Date -?-?-?-?-?-?-?-?-?-?-?-?- EGA Weight BP Urine Prot -?-?-?-?-?-?-?-?-?-?-?-?- Glucose FHR FuHt Pres Dilation -?-?-?-?-?-?-?-?-?-?-?-?- Effaced St Visit Note 12/18/22 -?-?-?-?-?-?-?-?-?-?-?-?- 9w 2d 174 lb 6 oz 112/76 -?-?-?-?-?-?-?-?-?-?-?-?- 161 -?-?-?-?-?-?-?-?-?-?-?-?- JV- CRL is consi stent with LMP. declines nipt. had cs then but may want rpt cs with btl. thyroid was slightly enlarged on exam. will add tsh to labs. her mom at age 46 from inflammatory breast ca. She gets yearly mammograms and q 6 month breast exams. does not want genetic screening yet. 01/14/23 -?-?-?-?-?-?-?-?-?-?-?-?- 13w 1d 177 lb 6 oz 116/75 -?-?-?-?-?-?-?-?-?-?-?-?- 155 -?-?-?-?-?-?-?-?-?-?-?-?- LC- no vb/crampi ng. FHR via handheld us. declines afp. [facility] anatomy ordered. 02/12/23 -?-?-?-?-?-?-?-?-?-?-?-?- 17w 2d 178 lb 2 oz 118/64 Nega tive -?-?-?-?-?-?-?-?-?-?-?-?- Negative 142 -?-?-?-?-?-?-?-?-?-?-?-?- -No VB, crampi ng. Feeling flutters. [facility] US 02/2503/15/23 -?-?-?-?-?-?-?-?-?-?-?-?- 21w 5d 184 lb 111/74 -?-?-?-?-?-?-?-?-?-?-?-?- 140 -?-?--?-?-?-?-?-?-?-?-?-?- SM- no vb lof so me fm. 04/08/23 -?-?-?-?-?-?-?-?-?-?-?-?- 25w 1d 186 lb 6 oz 130/73 Nega tive -?-?-?-?-?-?-?-?-?-?-?-?- Negative 158 26 -?-?-?-?-?-?-?-?-?-?-?-?- MH-No VB, LOF. G ood Fm. Will schedule US to check placenta. 28 wk labs today 05/03/23 -?-?-?-?-?-?-?-?-?-?-?-?- 28w 5d 192 lb 115/82 Negative -?-?-?-?-?-?-?-?-?-?-?-?- Negative 150 28 -?-?-?-?-?-?-?-?-?-?-?-?- SM- no vb lof go od fm n oregular ctx tdap today 05/14/23 -?-?-?-?-?-?-?-?-?-?-?-?- 30w 2d 195 lb 121/74 Negative -?-?-?-?-?-?-?-?-?-?-?-?- Negative 150 31 Cephalic -?-?-?-?-?-?-?-?-?-?-?-?- JV- no lof, vagi nal bleeding, or dec fm. Still deciding if wants to tolac. 05/29/23 -?-?-?-?-?-?-?-?-?-?-?-?- 32w 3d 201 lb 8 oz 106/67 Nega tive -?-?-?-?-?-?-?-?-?-?-?-?- Negative 147 32 Cephalic -?-?-?-?-?-?-?-?-?-?-?-?- JV- no lof, vagi nal bleeding, or cramping. has now decided for a 39 week and tubal. 06/10/23 -?-?-?-?-?-?-?-?-?-?-?-?- 34w 1d 195 lb 121/74 Negative -?-?-?-?-?-?-?-?-?-?-?-?- Negative 140 34 Cephalic -?-?-?-?-?--?-?-?-?-?-?-?- SM- no vb lof go od fm no regular ctx patient requesting 730 time, wants date moved if able 06/28/23 -?-?-?-?-?-?-?-?-?-?-?-?- 36w 5d 204 lb 104/70 Negative -?-?-?-?-?-?-?-?-?-?-?-?- Negative 155 37 Cephalic 0 .5 -?-?-?-?-?-?-?-?-?-?-?-?- SM- no vb lof go od fm no regular ctx 07/04/23 -?-?-?-?-?-?-?-?-?-?-?-?- 37w 4d 205 lb 112/73 Negative -?-?-?-?-?-?-?-?-?-?-?-?- Negative 150 38 Cephalic -?-?-?-?-?-?-?-?-?-?-?-?- SM- no vb lof go od fm no regular ctx 07/10/23 -?-?-?-?-?-?-?-?-?-?-?-?- 38w 3d 206 lb 2 oz 109/77 Nega tive -?-?-?-?-?-?-?-?-?-?-?-?- Negative 150 40 Cephalic -?-?-?-?-?-?-?-?-?-?-?-?- JV- no lof, vagi nal bleeding, or dec fm. has rpt and tubal next week. consent signed. ROS Constitutional Constitutional: Denies change in weight, fatigue, fever(s), headache(s), poor appetite or weakness Eyes Eyes: Denies blurry vision, change in vision, seeing flashes or spots in vision ENT HEENT: Denies dizziness, headache(s), loss taste/smell or sore throat Cardiovascular Cardiovascular: Denies chest pain, dizziness, dyspnea, irregular heart rhythm, leg edema, palpitations, rapid heart rate or vomiting Respiratory/Chest Respiratory/Chest: Denies chest tightness, cough, dyspnea or breast pain Gastrointestinal Gastrointestinal: Denies abdominal pain, anorexia, constipation, cramping, diarrhea, hemorrhoids, vomiting or weight changes Genitourinary Genitourinary: Denies dysuria, flank pain, genital lesions, genital pain, urinary frequency or urinary urgency Musculoskeletal Musculoskeletal: Denies back pain, difficulty walking, joint pain, limited range of motion, muscle cramps or numbness Integumentary Integumentary: Denies lesions or unusual bruising Neurologic Neurologic: Denies abnormal movements, abnormal speech, dizziness, numbness, seizure-like activity or syncope Psychiatric Psychiatric: Denies anxiety, behavioral changes, change in appetite, change in libido, cognitive impairment, confusion, depression, difficulty concentrating, hallucinations or suicidal thoughts Endocrine Endocrinology: Denies excessive sweating, polydipsia or polyuria Hematologic/Lymphatic Hematologic/Lymphatic: Denies easy bleeding, easy bruising or lymphadenopathy Allergic/Immunologic Allergic/Immunologic: Denies itchy eyes, lip swelling, seasonal rhinorrhea, rhinitis, throat swelling, tongue swelling, eczemia, wheezing or asthma Vital Signs Vital Signs Vital Signs: 07/16/23 05:45 07/16/23 05:46 07/16/23 05:46 Temperature 97.6 F L Temperature Source Temporal Pulse Rate 107 H 106 H Respiratory Rate 16 Blood Pressure 136/70 H Blood Pressure Mean 92 BP Systolic BP Diastolic Blood Pressure Source Monitor Blood Pressure Position Semi-Fowlers Blood Pressure Location Left Arm Pulse Ox 97 98 Oxygen Delivery Method Room Air 07/16/23 05:46 07/16/23 05:46 07/16/23 05:46 Temperature Temperature Source Temporal Pulse Rate Respiratory Rate 14 Blood Pressure 136/70 H Blood Pressure Mean BP Systolic 136 BP Diastolic 70 Blood Pressure Source Blood Pressure Position Blood Pressure Location Pulse Ox Oxygen Delivery Method 07/16/23 05:46 Temperature 97.6 F L Temperature Source Pulse Rate Respiratory Rate Blood Pressure Blood Pressure Mean BP Systolic BP Diastolic Blood Pressure Source Blood Pressure Position Blood Pressure Location Pulse Ox Oxygen Delivery Method Weight Weight: 201 lb 8.04 oz Body Mass Index (BMI) 31.5 Physical Exam Const alert, oriented x3, no apparent distress and healthy appearing General Appearance: cooperative HEENT normocephalic Face and Sinus: normal facial exam Eyes EOMs intact bilaterally and no scleral icterus General Eye: normal appearance of both eyes Neck full ROM and supple Lymph Lymphatic: no lymphadenopathy noted Chest Chest: abnormal inspection of the chest Resp normal respiratory effort Effort and Inspection: able to speak in complete sentences Cardio regular rate GI soft to palpation and non-tender Inspection: gravid Palpation: soft; Negative for tender Back/Spine no CVA tenderness Extremity normal to inspection, full ROM and no clubbing, cyanosis or edema General Extremity: Negative for calf tenderness or edema Skin Lesions: no lesions Rashes: no rashes Psych mental status grossly normal Labs Labs Labs: Blood Type O POSITIVE Antibody Screen NEGATIVE Hct 35.3 % (37-47) L Hgb 11.6 g/dL (12.0-15.0) L Pap Smear Negative Obstetrics Ultrasound Syphilis Total Ab Non-reactive Rubella IgG Antibody Reactive (Nonreactive) Hep Bs Antigen Non-Reactive (Nonreactive) Hepatitis C Antibody Non-Reactive (Nonreactive) Hepatitis C Ab (EIA) 0.1 s/co ratio (0.0-0.9) Chlamydia DNA (SANTOS) Negative (Negative) N.gonorrhoeae DNA (SANTOS) Negative (Negative) HIV 1&2 Antibody Non-Reactive (Nonreactive) Glucose 1 Hr 50 gm 108 mg/dL (70-140) Group B Strep DNA POSITIVE (Negative) H Rhogam given: No Assessment & Plan (1) Family history of breast cancer in first degree relative: COMMENT: Mother dx age 40 dec age 46 Pt declines empower currently Yearly mammograms at [facility] (2) Thyromegaly: COMMENT: NOB TSH WNL (3) Previous section: COMMENT: first baby was breech and was a section second was active labor/srom, pitocin used and delivered vaginally with Dr. Meza. She wants a tubal this time and may want just a repeat section. RLTCSBS scheduled for 07/15 @ 7:15 with JV (4) Advanced maternal age (AMA) in : COMMENT: offered genetic screening, declined. plan 36 week growth us-WNL at 75% (5) Supervision of high-risk : QUALIFIERS: Trimester: second trimester Qualified Code(s): O09.92 - Supervision of high risk , unspecified, second trimester COMMENT: [id number], JOSHUA 07/20/22, girl ONEAL Delacruz, Lashaun Ernesto (6) : QUALIFIERS: Weeks of gestation: 38 weeks Qualified Code(s): Z3A.38 - 38 weeks gestation of COMMENT: GBS Negative, declines genetic & carrier ntd testing. nl anatomy. PLAN: Plan After discussing the patient's diagnosis and treatment plan options, patient wishes to proceed with surgical management. I have discussed with the patient the risks, benefits, and alternatives of the procedure which include but are not limited to risks of anesthesia, bleeding, infection, possible damage to bowel, bladder, or surrounding vasculature which could lead to additional surgery to evaluate any complications. Patient agrees to procedure and wishes to proceed. plan for repeat section with BTL.
--- NOTE | 2023-07-16 07:38 | DCINST_ITS ---
Discharge Instructions Diet Discharge Diet: No restrictions Activity Discharge Activity: May Not Drive (for 2 weeks or while taking narcotic pain medications.), May Shower and May Take a Tub Bath (in 7 days.) May resume sexual activity in: 4-6 weeks Weight Bearing Status: Full weight bearing Lifting Restrictions: 20 pounds Dressing / Incision Call your doctor if your incision/area has: Continuous Slow Oozing, Sudden Increased Bleeding, Increased Pain/ Swelling, Increased Redness and Foul Smelling Discharge Call your doctor if you observe: Fever of 101 or Higher and Using more than 1 pad per hour Suture Line Care: Avoid Pulling/Pushing and Avoid Pinching/Bending Cleanse incision/area with: Soap & Water and Keep Dressing Clean & Dry Follow Up Care Please Follow Up With: Latasha Duque DO When: Call [phone] to make an appointment for an incision check in 1-2 weeks. Test Results: Test results from this visit will be discussed in further detail at your follow- up appointment, if applicable. Discharge Plan Admission Admit Date/Time: 07/16/23 05:30 Primary Reason for Your Visit: section and bilateral salpingectomy Attending Provider: Latasha Duque Primary Care Provider: Lovely Freeman Discharge Orders/Prescriptions Prescriptions: New ibuprofen 800 mg tablet 800 mg PO Q8H PRN (Reason: pain) Qty: 30 0RF oxycodone-acetaminophen [Percocet] 5-325 mg tablet 1 tab PO Q4H PRN (Reason: pain) 7 Days Qty: 20 0RF Rx Instructions: 1-2 tabs q 4 hrs as needed for pain Continued vit,[id number] 1 TABLET tablet 1 tab PO DAILY Referrals / Follow Up: Lovely Freeman MD [Primary Care Provider] - Disposition Disposition (needs filled in before D/C Order can be placed): Home, Self Care
[2023-07-16 07:44] LABS: Syphilis Antibodies Non-reactive
[2023-07-16] MEDS: Ondansetron 4 MG/2 ML Vial IV ×2 (07:45→20:52)
[2023-07-16] MEDS: Sodium Citrate/Citric Acid 30 ML UDC PO (07:45)
[2023-07-16] MEDS: Clindamycin 900 MG/50 ML BAG 75 MG IV (08:33)
--- NOTE | 2023-07-16 09:50 | OP.PCM_ITS ---
Assessment & Plan (1) Family history of breast cancer in first degree relative: COMMENT: Mother dx age 40 dec age 46 Pt declines empower currently Yearly mammograms at [facility] in [place] (2) Thyromegaly: COMMENT: NOB TSH WNL (3) Previous section: COMMENT: first baby was breech and was a section second was active labor/srom, pitocin used and delivered vaginally with Dr. Meza. She wants a tubal this time and may want just a repeat section. RLTCSBS scheduled for 07/15 @ 7:15 with JV (4) Advanced maternal age (AMA) in : COMMENT: offered genetic screening, declined. plan 36 week growth us-WNL at 75% (5) Supervision of high-risk : QUALIFIERS: Trimester: second trimester Qualified Code(s): O09.92 - Supervision of high risk , unspecified, second trimester COMMENT: [id number], JOSHUA 07/20/22, girl ONEAL Delacruz, Lashaun Ernesto (6) : QUALIFIERS: Weeks of gestation: 38 weeks Qualified Code(s): Z3A.38 - 38 weeks gestation of COMMENT: GBS Negative, declines genetic & carrier ntd testing. nl anatomy. (7) (vaginal after ): (8) Sterilization consult: Maternal Data Information JOSHUA Calculator Estimated Delivery Date Method Current WG Current Estimate 07/21/23 LMP (Certain) 39w 2d Other Estimates 07/16/23 Ultrasound #1 40w 0d Details Operative Information Date of Procedure: 07/16/23 Pre-Operative Diagnosis: 38 y/o @ 39 weeks 2 days, prior section, declines , desires permanent sterilization Post-Operative Diagnosis: 38 y/o @ 39 weeks 2 days, prior section, declines , desires permanent sterilization Indications for : Repeat Elective and Desires elective sterilization Classification: Scheduled Procedure Type: low transverse health support specialist #1: Ernesto Licona Type of Anesthesia: Spinal Antibiotic Given: Ancef 2 grams IV x1 Estimated Blood Loss: 700cc Procedure Start Time: 08:56 Procedure Stop Time: 09:40 Time of Delivery: 09:00 Findings Description of Procedure: Procedure: The patient was brought to the operating room and spinal anesthesia was found to be adequate. She was prepped and draped in the normal sterile fashion and was placed in a dorsal supine position with a leftward tilt. Pfannenstiel skin incision was made with a scalpel and carried through to the underlying layers. The fascia was nicked in the midline and extended laterally using Monk scissors. The anterior aspect of the fascia was grasped with Afshin clamps and the underlying rectus muscles dissected off using the Metzenbaum scissors. The inferior aspect the fascia was also grasped with Afshin clamps and the underlying rectus muscle dissected off with the Metzenbaum scissors. The rectus muscles were in the midline. Peritoneum was entered sharply. The uterus was identified and a bladder blade was inserted into the abdomen. Bladder flap was created off the uterus using Metzenbaum scissors. A transverse incision was made with a scalpel and extended laterally manually. The infant's head was grasped with the help of my trust operations assistant and fundal pressure the infant was delivered through the uterine incision without difficulty. a nuchal and 2 body cords were reduced without difficulty. The mouth and nares were bulb suctioned. After a 30 second delay the cord was clamped and cut. The infant was handed off to the awaiting property coordinator for routine assessment. Placenta was delivered manually without difficulty. The uterus was exteriorized and cleared of all clots and debris. Incision was closed with an 0 Vicryl suture in a running locked fashion. Second layer of 1-0 monocryl suture was used in imbricating manner to create excellent closure and hemostasis. The right fallopian tube was grasped with a adam clamp and elevated. The underlying mesosalpinx was cauterized and cut to the cornua of the uterus and removed completely from the fimbria to the cornua. The same procedure was performed on the opposite side. The uterus was returned to the abdomen. The gutters were cleared of all clots and debris. The peritoneum was closed in a pursestring pattern using a 3-0 Vicryl suture. This muscle was reapproximated with a 3-0 Vicryl. The fascia was closed with an 0-PDS suture. Subcutaneous tissue layer was closed using a plain gut suture. The skin was closed with a 4-0 Monocryl subcuticular stitch. The skin was also sealed with surgical glue. The patient tolerated the procedure well sponge lap and needle counts were correct at each tissue closure plane and the patient is now being brought to the recovery room in stable condition Presentation: Positive for Vertex Amniotic Fluid Description: Clear Placental Delivery Description: Manual Removal Placenta Disposition: [facility] Cord Vessel Description: 3 Vessels Cord Entanglement: Around neck x 1, loose Nuchal Cord Compression: Without compression Infant A Gender: Female (1 minute): 8 (5 minute): 9 Delayed Cord Clamping: Yes Complications Risks of Surgery Discussed w/Patient: Anesthesia Risks, Infection, Need for Future C-Sections and Injury to surrounding structure(s) including bowel and bladder Multi Select Codes Urinary/Genital Urinary/Genital CPT Codes: 33136 Delivery global pkg and Other Proc edure See Report
[2023-07-16] MEDS: Oxytocin 15 Units/NS 250ml 15 UNITS/250 ML IV.SOLN 83 UNITS IV (10:00)
[2023-07-16] MEDS: Ketorolac 30 MG/ML Syringe IV ×3 (10:39→22:18)
[2023-07-16] MEDS: Lactated Ringers 1,000 ML 100 ML IV (13:07)
--- NOTE | 2023-07-16 16:20 | CHAPLAIN ---
Type of Pastoral Visit _x__ Initial Visit ___ Follow-up Visit ___ On-call Visit ___ General Patient Visit ___ Spiritual Assessment ___ Family Conference ___ Bereavement ___ Rapid Response ___ Code Blue ___ Other (describe below) Pastoral Care Referral From _x__ Patient _x_ Family ___ Nurse ___ Physician ___ Senior Compensation Consultant ___ Dividend Deposit Entry Clerk ___ Other (describe below) Sacrament/Intervention _x__ Active listening ___ Anointing ___ Judaism ___ Bereavement ___ Communion ___ Colleen exploration ___ ___ Life review _x__ Prayer ___ Reconciliation ___ Sacrament of Sick ___ Supportive presence ___ Wedding ___ Other (describe below) Pastoral Comments 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
[2023-07-16] MEDS: 0.9% Saline Lock 10 ML Syringe IV ×2 (20:52→22:18)
[2023-07-17] MEDS: Acetaminophen 500 MG Tablet 1000 MG PO ×4 (00:13→17:53)
[2023-07-17 00:19] VITALS: BP 129/83; PULSE 77; RESP 16; TEMP 36.9; O2SAT 95
[2023-07-17 04:13] VITALS: BP 123/77; PULSE 74; RESP 16; TEMP 36.5; O2SAT 96
[2023-07-17] MEDS: Ketorolac 30 MG/ML Syringe IV (04:20)
[2023-07-17] MEDS: 0.9% Saline Lock 10 ML Syringe IV (04:20)
[2023-07-17 05:37] LABS: Hematocrit 30.2 % (37-47); Hemoglobin 9.9 g/dL (12.0-15.0); Mean Corp Hgb Conc 32.8 g/dL (32-36); Mean Corpuscular Hgb 29.2 pg (27.0-32.0); Mean Corpuscular Volume 89.1 fL (81-99); Mean Platelet Vol. 9.6 fl (6.2-12.0); Platelet Count 240 K/mm3 (150-450); RBC Distribution Width CV 12.9 % (11.6-14.6); RBC Distribution Width SD 41.7 fl (35.1-43.9); Red Blood Count 3.39 M/mm3 (4.2-5.4); White Blood Count 10.5 K/mm3 (4.4-11.0)
[2023-07-17 07:17] LABS: Pathology Specimen OB SEE PATHOLOGY REPORT
[2023-07-17 07:34] VITALS: BP 124/82; PULSE 76; RESP 16; TEMP 36.4; O2SAT 96
--- NOTE | 2023-07-17 08:04 | PCM.PN.OB ---
Subjective Subjective Patient doing well without complaints. Tolerating PO. Ambulating and voiding without difficulty. Feeding well. Denies chest pain, shortness of breath, calf pain/swelling, fevers, chills, lightheadedness. Objective Data Objective Data Vital Signs: Vital Signs Temp Pulse Resp BP Pulse Ox O2 Del Method 97.6 F L 76 16 124/82 H 96 Room Air 07/17/23 07:34 07/17/23 07:34 07/17/23 07:34 07/17/23 07:34 07/17/23 07:34 07/17/23 07:34 Oxygen Delivery Method Room Air Weight: 201 lb 8.04 oz Body Mass Index (BMI) 31.5 Intake & Output: Intake and Output for Last 24 Hours 07/15/23 07/16/23 07/17/23 23:59 23:59 23:59 Intake Total 2140 / 2140 Output Total 1999 / 1999 900 / 900 Balance 140 / 140 -900 / -900 Lab / Micro Data 07/17/23 05:30 Labs: Laboratory Results - last 24 hr 07/17/23 05:30: WBC 10.5, RBC 3.39 L, Hgb 9.9 L, Hct 30.2 L, MCV 89.1, MCH 29.2, MCHC 32.8, RDW Std Deviation 41.7, RDW Coeff of Lisbeth 12.9, Plt Count 240, MPV 9.6 Physical Exam Const alert and oriented x3 HEENT normocephalic Eyes PERRL Neck full ROM Resp normal respiratory effort GI soft to palpation GI Narrative: FF below U. Dressing dry and intact Palpation: tender other (appropriately) Assessment & Plan (1) Status post section: COMMENT: 07/16/23 girl Alix ROSENBERG (2) Sterilization consult: PLAN: Plan s/p LTCS PPD # 1 1. routine post care 2. breast feeding- support given 3. rh positive 4. rubella immune
[2023-07-17] MEDS: Senna/Docusate Sodium 1 Tablet PO (10:39)
[2023-07-17] MEDS: Ibuprofen 600 MG Tablet PO ×3 (10:39→22:15)
[2023-07-17] MEDS: oxyCODONE 5 MG Tablet PO ×2 (11:48→17:52)
[2023-07-17 12:19] VITALS: BP 105/65; PULSE 68; RESP 16; TEMP 35.8
[2023-07-17 14:18] VITALS: BP 105/69; RESP 16; TEMP 36.4
[2023-07-17 20:00] VITALS: BP 129/74; PULSE 83; RESP 16; TEMP 36.2; O2SAT 99
[2023-07-18] MEDS: Acetaminophen 500 MG Tablet 1000 MG PO ×3 (00:11→12:26)
[2023-07-18 01:04] VITALS: BP 128/76; PULSE 75; RESP 16; TEMP 36.4; O2SAT 98
[2023-07-18] MEDS: oxyCODONE 5 MG Tablet PO ×2 (02:35→09:52)
[2023-07-18] MEDS: Ibuprofen 600 MG Tablet PO ×2 (04:05→09:52)
--- NOTE | 2023-07-18 07:59 | PCM.PN.OB ---
Subjective Subjective Patient doing well without complaints. Tolerating PO. Ambulating and voiding without difficulty. Feeding well. Denies chest pain, shortness of breath, calf pain/swelling, fevers, chills, lightheadedness. Objective Data Objective Data Vital Signs: Vital Signs Temp Pulse Resp BP Pulse Ox O2 Del Method 97.5 F L 75 16 128/76 H 98 Room Air 07/18/23 01:04 07/18/23 01:04 07/18/23 01:04 07/18/23 01:04 07/18/23 01:04 07/18/23 01:04 Oxygen Delivery Method Room Air Weight: 201 lb 8.04 oz Body Mass Index (BMI) 31.5 Intake & Output: Intake and Output for Last 24 Hours 07/16/23 07/17/23 07/18/23 23:59 23:59 23:59 Intake Total 2140 / 2140 Output Total 1999 900 / 900 Balance 140 / 140 -900 / -900 Lab / Micro Data Attestation: I reviewed the patient's lab results. 07/17/23 05:30 ROS Constitutional Constitutional: Reports systems reviewed and no addt'l complaints, except as documented; Denies anorexia or headache(s) Cardiovascular Cardiovascular: Reports systems reviewed and no addt'l complaints, except as documented; Denies dizziness, dyspnea, nausea or tachypnea Respiratory/Chest Respiratory/Chest: Reports systems reviewed and no addt'l complaints, except as documented; Denies cough, dyspnea, shortness of breath at rest or tachypnea Gastrointestinal Gastrointestinal: Reports systems reviewed and no addt'l complaints, except as documented; Denies abdominal pain, constipation or nausea Genitourinary Genitourinary: Reports systems reviewed and no addt'l complaints, except as documented; Denies burning urination, difficulty urinating, dysuria, urinary frequency or urinary incontinence Musculoskeletal Musculoskeletal: Reports systems reviewed and no addt'l complaints, except as documented Integumentary Integumentary: Reports systems reviewed and no addt'l complaints, except as documented Neurologic Neurologic: Reports systems reviewed and no addt'l complaints, except as documented; Denies abnormal speech, dizziness or headache(s) Psychiatric Psychiatric: Reports systems reviewed and no addt'l complaints, except as documented Endocrine Endocrinology: Reports systems reviewed and no addt'l complaints, except as documented Hematologic/Lymphatic Hematologic/Lymphatic: Reports systems reviewed and no addt'l complaints, except as documented Physical Exam Const alert, oriented x3 and no apparent distress Neck full ROM Resp normal respiratory effort, normal air movement and no retractions Effort and Inspection: able to speak in complete sentences and symmetric chest movement GI soft to palpation Inspection: incision intact Bladder / Kidney Exam: bladder normal to palpation Uterus Palpation: uterus fundus firm Extremity normal to inspection and full ROM Psych mental status grossly normal, thought process normal and cooperative Assessment & Plan (1) Status post section: COMMENT: 07/16/23 girl Alix ROSENBERG PLAN: s/p LTCS PPD # 2 1. routine post care 2. breast feeding- support given 3. rh positive 4. rubella immune 5. Discharge home (2) Family history of breast cancer in first degree relative: COMMENT: Mother dx age 40 dec age 46 Pt declines empower currently Yearly mammograms at [facility] in [place] (3) Thyromegaly: COMMENT: NOB TSH WNL (4) Previous section: COMMENT: first baby was breech and was a section second was active labor/srom, pitocin used and delivered vaginally with Dr. Meza. She wants a tubal this time and may want just a repeat section. RLTCSBS scheduled for 07/15 @ 7:15 with SHAKIRA (5) (vaginal after ): Charges/Coding Multi Select Codes Urinary/Genital Urinary/Genital CPT Codes: No Charge
[2023-07-18 08:00] VITALS: BP 126/75; PULSE 83; RESP 16; TEMP 36.6
[2023-07-18] MEDS: Senna/Docusate Sodium 1 Tablet PO (09:52)
[2023-07-18 14:00] VITALS: BP 130/80; PULSE 85; RESP 16; TEMP 36.3
--- NOTE | 2023-07-22 14:08 | NURSING ---
Attempted f/up phone call on 07/22/23 at 1408. No answer, left voicemail with unit phone number if pt. has questions or concerns.
== END 2023-07-18 15:00 | disposition home or self-care (01) | DRG 785 ==
PROVIDERS: Admitting Provider Obstetrics & Gynecology; PCP Family Medicine; Visit Provider Obstetrics & Gynecology
PROC: 10D00Z1 Extraction of Products of Conception, Low, Open Approach (ICD-10-PCS; CPT 59514; principal; 2023-07-16 07:00)
DX: O34.219 Maternal care for unspecified type scar from previous cesarean delivery (principal); E01.0 Iodine-deficiency related diffuse (endemic) goiter; O69.2XX0 Labor and delivery complicated by other cord entanglement, with compression, not applicable or unspecified; O99.284 Endocrine, nutritional and metabolic diseases complicating childbirth; Z3A.39 39 weeks gestation of pregnancy; Z37.0 Single live birth; Z20.2 Contact with and (suspected) exposure to infections with a predominantly sexual mode of transmission; Z80.3 Family history of malignant neoplasm of breast
CPT/HCPCS: 59050; 85025; 85027; 86780; 86850; 86900; 86901; 88302; 99221; J7120; A4216; G0378; J2405

== ENCOUNTER → 2024-05-22 | Outpatient (CLI) | payer OTHER, SELFPAY ==
--- NOTE | 2024-05-22 13:50 | CT_ITS ---
PROCEDURE: ABDOMEN/PELVIS WITHOUT CONT 05/22/2024 REASON FOR EXAM: RENAL COLIC, right TECHNIQUE: Abdomen and pelvis CT without intravenous contrast. Noncontrast technique limits evaluation of the abdominal and pelvic viscera. Coronal and Sagittal reconstruction series were provided. One or more dose reduction techniques were used (e.g., Automated exposure control, adjustment of the mA and/or kV according to patient size, use of iterative reconstruction technique). PATIENT PREPARATION: Per protocol ORAL CONTRAST TYPE: None. COMPARISON: None. FINDINGS: Lung bases: The heart is normal in size. The bibasilar lungs are clear. Liver: The unopacified liver is normal in size. No biliary ductal dilation. Gallbladder: Decompressed. Spleen: Normal size. Pancreas: Unremarkable. Adrenals: No adrenal mass. Kidneys: No hydronephrosis or nephrolithiasis. Bladder: Minimally distended and unremarkable. Reproductive Organs: Grossly unremarkable. Bowel: The bowel loops are normal in caliber. No ascites or pneumoperitoneum. Normal appendix. Lymph nodes: Visualization is limited without the use of IV contrast. No prominent lymphadenopathy. Vasculature: The abdominal aorta and IVC contours are normal. Noncontrast technique limits evaluation. Bones: No aggressive osseous lesions. CT/Abdomen/Pelvis without Cont IMPRESSION: NO UROLITHIASIS OR HYDRONEPHROSIS. NO ACUTE FINDINGS. Reading Location: [id number]
== END | disposition home or self-care (01) ==
PROVIDERS: PCP Family Medicine; Referring Provider Family Medicine; Visit Provider Family Medicine
DX: N23 Unspecified renal colic (principal)
CPT/HCPCS: 74176